=== PATIENT | female | born 1960 | race African-American/Black ===

== ENCOUNTER 2022-10-19 21:26 | Inpatient (IN) | payer MEDICAID ==
[~2022-10-19] VITALS: Ht 170.2 cm; Wt 88.1 kg
[~2022-10-19 21:26] MED LIST: AMLO-489 PO; ASPI-543 PO; ATO40T PO; CLOP75TA28 PO; LOSA-69 PO
[2022-10-19] MEDS ORDERED: IOHEXOL 350 MG/ML 100ML IJ ONE (22:30)
[2022-10-19 23:33] LABS: Basophils # (auto) 0 10 ^3/uL (0-0.2); Lymphocytes # (auto) 0.6 10 ^3/uL (0.4-5.4); Monocytes # (auto) 0.5 10 ^3/uL (0-1.3); Nucleated Red Blood Cells % 0.3 %; Red Blood Cells 2.77 10^6/uL (4.0-5.20)
[2022-10-19 23:39] LABS: Basophils % (auto) 0.5 % (0.0-2.0); Eosinophils # (auto) 0.6 10 ^3/uL (0-0.8); Eosinophils % (auto) 8.8 % (0.0-7.0); Hemoglobin 7.2 g/dL (12.2-16.2); Lymphocytes % (auto) 8.6 % (10.0-50.0); Mean Corpuscular Hemoglobin 26.1 pg (28.0-32.0); Mean Corpuscular Hgb Conc. 31.4 g/dL (32.0-36.0); Mean Corpuscular Volume 83.2 fL (80.0-100.0); Monocytes % (auto) 8.2 % (0.0-12.0); Neutrophils # (auto) 4.9 10 ^3/uL (1.6-8.6); Neutrophils % (auto) 73.9 % (37.0-80.0); Red Cell Distribution Width 18.9 % (11.8-14.3); White Blood Cell 6.7 10^3/uL (4.4-10.8)
[2022-10-19 23:43] LABS: Alanine Aminotransferase 10 U/L (13-56); Albumin 2.5 g/dL (3.4-5.0); Anion Gap 12 (5-15); Aspartate Aminotransferase 15 U/L (15-37); BUN/Creatinine Ratio 5.6; Blood Urea Nitrogen 15 mg/dL (7-18); Calcium 10.5 mg/dL (8.5-10.1); Carbon Dioxide 17 mmol/L (21-32); Chloride 115 mmol/L (98-107); GFR African American 23 mL/min; GFR Non-African American 19 mL/min; Glucose 77 mg/dL (74-106); Potassium 3.9 mmol/L (3.5-5.1); Sodium 144 mmol/L (136-145)
[2022-10-19 23:46] LABS: Alkaline Phosphatase 74 U/L (45-117); Bilirubin, Total 0.3 mg/dL (0.2-1.0); Total Protein 5.9 g/dL (6.4-8.2)
[2022-10-20] MEDS ORDERED: NITROGLYCERIN 0.4 MG SL TAB SL PRN (02:30)
[2022-10-20] MEDS ORDERED: MORPHINE SULFATE INJ 2 MG/ml SYRG IV PRN ×2 (02:30→16:15)
[2022-10-20] MEDS ORDERED: ONDANSETRON HCL 4 MG/2 ML VIAL IV PRN (02:30)
[2022-10-20] MEDS ORDERED: ACETAMINOPHEN 325 MG TAB PO PRN (02:30)
[2022-10-20 03:25] LABS: % Iron Saturation 24.4 % (15-50)
[2022-10-20] MEDS ORDERED: ENOXAPARIN SOD 100 MG/1 ML SYRINGE SC ONE (03:30)
[2022-10-20 08:58] VITALS: BP 111/69
[2022-10-20 09:13] VITALS: BP 107/66
[2022-10-20 09:43] VITALS: BP 121/69
[2022-10-20] MEDS: amLODIPine BESYLATE 5 MG TAB PO SCH (10:00)
[2022-10-20] MEDS ORDERED: LOSARTAN POTASSIUM 50 MG TAB PO SCH (10:00)
[2022-10-20 11:10] VITALS: BP 104/59
[2022-10-20] MEDS: CLOPIDOGREL BISULFATE 75 MG TAB PO SCH (14:17)
[2022-10-20] MEDS: PANTOPRAZOLE 40 MG TAB PO SCH (14:17)
[2022-10-20] MEDS: ASPirin 81 mg TAB PO SCH (14:20)
[2022-10-20] MEDS ORDERED: HYDROcodone-ACET 5/325MG TAB PO PRN (16:15)
[2022-10-20] MEDS: SODIUM BICARBONATE 50ML VIAL 50 ML in SOD CHL 0.45% 1,000 ML IV SCH (17:31)
[2022-10-20] MEDS ORDERED: METO10TA3 PO (19:20)
[2022-10-20] MEDS ORDERED: HYDR25TA87 PO (19:20)
[2022-10-20] MEDS ORDERED: LEVO-28 PO (19:20)
[2022-10-20] MEDS ORDERED: DILT-14 PO (19:20)
[2022-10-20] MEDS: ATORVASTATIN 20 MG TAB PO SCH (23:14)
[2022-10-20 23:25] VITALS: BP 84/54
[2022-10-20 23:49] VITALS: BP 96/60
[2022-10-21] VITALS (12 sets, daily range): BP systolic 72–118; BP diastolic 46–76
[2022-10-21 00:04] LABS: Protein, Urine 130.3 mg/dL (0.0-11.9)
[2022-10-21 00:09] LABS: Urine Bacteria None Seen /hpf (None Seen); Urine Specific Gravity 1.037 (1.001-1.035)
[2022-10-21 00:10] LABS: Urine Blood Normal /uL (Negative)
[2022-10-21 00:12] LABS: Urine WBC 105 /hpf (0 - 5)
[2022-10-21 00:13] LABS: Urine WBC Clumps PRESENT /hpf (None Seen)
[2022-10-21] MEDS: SODIUM BICARBONATE 50ML VIAL 50 ML in SOD CHL 0.45% 1,000 ML IV SCH ×4 (04:18→22:53)
[2022-10-21] MEDS: ACETAMINOPHEN 500 MG TAB PO PRN (04:26)
[2022-10-21 06:26] LABS: Basophils # (auto) 0 10 ^3/uL (0-0.2); Eosinophils # (auto) 0.4 10 ^3/uL (0-0.8); Hematocrit 15.3 % (36.0-46.0); Mean Corpuscular Volume 86.1 fL (80.0-100.0); Monocytes # (auto) 0.7 10 ^3/uL (0-1.3); Monocytes % (auto) 8.5 % (0.0-12.0); Neutrophils # (auto) 6.4 10 ^3/uL (1.6-8.6); Nucleated Red Blood Cells % 0.1 %; Red Blood Cells 1.78 10^6/uL (4.0-5.20)
[2022-10-21 06:29] LABS: Basophils % (auto) 0.5 % (0.0-2.0); Eosinophils % (auto) 5.3 % (0.0-7.0); Lymphocytes # (auto) 0.5 10 ^3/uL (0.4-5.4); Mean Corpuscular Hemoglobin 27.1 pg (28.0-32.0); Mean Corpuscular Hgb Conc. 31.4 g/dL (32.0-36.0); Neutrophils % (auto) 79.7 % (37.0-80.0); Red Cell Distribution Width 18.8 % (11.8-14.3); White Blood Cell 8.1 10^3/uL (4.4-10.8)
[2022-10-21 06:33] LABS: Hemoglobin 4.8 g/dL (12.2-16.2)
[2022-10-21 07:23] LABS: Alanine Aminotransferase < 6 U/L (13-56); Alkaline Phosphatase 66 U/L (45-117); Anion Gap 13 (5-15); Aspartate Aminotransferase 13 U/L (15-37); BUN/Creatinine Ratio 6.8; Bilirubin, Total 0.4 mg/dL (0.2-1.0); Blood Urea Nitrogen 19 mg/dL (7-18); Calcium 10.1 mg/dL (8.5-10.1); Carbon Dioxide 16 mmol/L (21-32); Chloride 116 mmol/L (98-107); GFR African American 22 mL/min; GFR Non-African American 18 mL/min; Glucose 65 mg/dL (74-106); Sodium 145 mmol/L (136-145); Total Protein 5.6 g/dL (6.4-8.2)
[2022-10-21 07:38] LABS: Potassium 2.9 mmol/L (3.5-5.1)
[2022-10-21] MEDS ORDERED: POTASSIUM EFFERVESENT TAB 25 MEQ PO ONE (08:30)
[2022-10-21] MEDS ORDERED: cefTRIAXone 1GM/50ML D5W 50 ML IV SCH (09:00)
[2022-10-21] MEDS: ASPirin 81 mg TAB PO SCH ×2 (10:00→11:10)
[2022-10-21] MEDS: CLOPIDOGREL BISULFATE 75 MG TAB PO SCH ×2 (10:00→11:10)
[2022-10-21] MEDS: amLODIPine BESYLATE 5 MG TAB PO SCH (10:00)
[2022-10-21] MEDS: PANTOPRAZOLE 40 MG TAB PO SCH (10:41)
[2022-10-21] MEDS: PIPERACILLIN-TAZOB 2.25GM 50 ML IV SCH ×2 (13:15→17:41)
[2022-10-21 16:10] LABS: Hematocrit 31.3 % (36.0-46.0); Hemoglobin 10.3 g/dL (12.2-16.2)
[2022-10-21 16:21] LABS: Magnesium 1.5 mg/dL (1.6-2.6); Potassium 3.4 mmol/L (3.5-5.1)
[2022-10-21] MEDS ORDERED: FUROSEMIDE 20 MG/2 ML VIAL IV ONE (19:00)
[2022-10-21] MEDS ORDERED: diphenhdrAMINE HCL 50 MG/1 ML VL IM ONE (19:00)
[2022-10-21] MEDS ORDERED: POTASSIUM CHL 20MEQ/100ML 100 ML IV ONE (19:45)
[2022-10-21] MEDS ORDERED: diphenhdrAMINE HCL 50 MG/1 ML VL IV ONE (19:45)
[2022-10-21] MEDS: MAGNESIUM SULFATE 1GM/100ML 100 ML IV SCH ×2 (20:49→21:00)
[2022-10-21] MEDS: ATORVASTATIN 20 MG TAB PO SCH (22:00)
[2022-10-22] VITALS (8 sets, daily range): BP systolic 70–137; BP diastolic 43–65
[2022-10-22] MEDS: PIPERACILLIN-TAZOB 2.25GM 50 ML IV SCH ×4 (00:12→17:42)
[2022-10-22] MEDS: ACETAMINOPHEN 500 MG TAB PO PRN ×2 (01:20→09:35)
[2022-10-22] MEDS ORDERED: SODIUM CHLORIDE 0.9% 500 ML IV ONE (02:45)
[2022-10-22] MEDS: ALBUMIN 25% 100 ML IV SCH ×3 (04:48→20:43)
[2022-10-22] MEDS: SODIUM BICARBONATE 50ML VIAL 50 ML in SOD CHL 0.45% 1,000 ML IV SCH ×3 (06:45→22:18)
[2022-10-22 07:23] LABS: Basophils # (auto) 0 10 ^3/uL (0-0.2); Basophils % (auto) 0.2 % (0.0-2.0); Eosinophils # (auto) 0.2 10 ^3/uL (0-0.8); Eosinophils % (auto) 2.1 % (0.0-7.0); Hematocrit 28.4 % (36.0-46.0); Hemoglobin 9.3 g/dL (12.2-16.2); Lymphocytes # (auto) 0.1 10 ^3/uL (0.4-5.4); Lymphocytes % (auto) 1.3 % (10.0-50.0); Mean Corpuscular Hemoglobin 27.2 pg (28.0-32.0); Mean Corpuscular Hgb Conc. 32.6 g/dL (32.0-36.0); Mean Corpuscular Volume 83.5 fL (80.0-100.0); Monocytes # (auto) 0.4 10 ^3/uL (0-1.3); Neutrophils # (auto) 8.3 10 ^3/uL (1.6-8.6); Neutrophils % (auto) 92.4 % (37.0-80.0); Nucleated Red Blood Cells % 0.1 %; Red Blood Cells 3.41 10^6/uL (4.0-5.20); Red Cell Distribution Width 18.7 % (11.8-14.3)
[2022-10-22 07:45] LABS: Potassium 3.8 mmol/L (3.5-5.1)
[2022-10-22 07:53] LABS: Albumin 2.4 g/dL (3.4-5.0); BUN/Creatinine Ratio 6.3; Bilirubin, Total 0.7 mg/dL (0.2-1.0); Total Protein 5.1 g/dL (6.4-8.2)
[2022-10-22] MEDS: CLOPIDOGREL BISULFATE 75 MG TAB PO SCH (09:34)
[2022-10-22] MEDS: ASPirin 81 mg TAB PO SCH (09:34)
[2022-10-22] MEDS: PANTOPRAZOLE 40 MG TAB PO SCH (09:35)
[2022-10-22] MEDS: amLODIPine BESYLATE 5 MG TAB PO SCH (09:49)
[2022-10-22] MEDS: MIDODRINE HCL 10 MG TAB PO SCH ×2 (11:41→17:42)
[2022-10-22 16:14] LABS: INR 1.22 (0.9-1.15)
[2022-10-22] MEDS: DOPamine 1600MCG/ML D5W 250 ML IV SCH (16:26)
[2022-10-22] MEDS: ATORVASTATIN 20 MG TAB PO SCH (22:45)
[2022-10-23] MEDS: PIPERACILLIN-TAZOB 2.25GM 50 ML IV SCH ×4 (00:28→21:41)
[2022-10-23 05:00] VITALS: BP 155/62
[2022-10-23] MEDS: ACETAMINOPHEN 500 MG TAB PO PRN (05:47)
[2022-10-23] MEDS: MIDODRINE HCL 10 MG TAB PO SCH ×3 (05:48→18:50)
[2022-10-23] MEDS: SODIUM BICARBONATE 50ML VIAL 50 ML in SOD CHL 0.45% 1,000 ML IV SCH ×2 (06:43→16:54)
[2022-10-23 06:55] LABS: Basophils # (auto) 0 10 ^3/uL (0-0.2); Basophils % (auto) 0.3 % (0.0-2.0); Hemoglobin 9.2 g/dL (12.2-16.2); Lymphocytes # (auto) 0.2 10 ^3/uL (0.4-5.4); Mean Corpuscular Hemoglobin 26.6 pg (28.0-32.0); Monocytes # (auto) 0.3 10 ^3/uL (0-1.3)
[2022-10-23 06:58] LABS: Eosinophils # (auto) 0.4 10 ^3/uL (0-0.8); Eosinophils % (auto) 3.2 % (0.0-7.0); Hematocrit 28.9 % (36.0-46.0); Lymphocytes % (auto) 1.4 % (10.0-50.0); Mean Corpuscular Hgb Conc. 31.8 g/dL (32.0-36.0); Mean Corpuscular Volume 83.5 fL (80.0-100.0); Monocytes % (auto) 2.2 % (0.0-12.0); Neutrophils # (auto) 12.9 10 ^3/uL (1.6-8.6); Neutrophils % (auto) 92.9 % (37.0-80.0); Nucleated Red Blood Cells % 0.1 %; Red Blood Cells 3.46 10^6/uL (4.0-5.20); Red Cell Distribution Width 18.8 % (11.8-14.3); White Blood Cell 13.9 10^3/uL (4.4-10.8)
[2022-10-23 07:13] LABS: Albumin 2.5 g/dL (3.4-5.0); Calcium 8.6 mg/dL (8.5-10.1); Potassium 3.5 mmol/L (3.5-5.1)
[2022-10-23 07:18] LABS: BUN/Creatinine Ratio 5.9; Bilirubin, Total 1.1 mg/dL (0.2-1.0); Total Protein 5.1 g/dL (6.4-8.2)
[2022-10-23 08:00] LABS: INR 1.18 (0.9-1.15); Partial Thromboplastin Time 35.9 sec (24.6-33.4)
[2022-10-23 09:00] VITALS: BP 90/49
[2022-10-23] MEDS: PANTOPRAZOLE 40 MG TAB PO SCH (09:40)
[2022-10-23] MEDS: ASPirin 81 mg TAB PO SCH (09:40)
[2022-10-23] MEDS: CLOPIDOGREL BISULFATE 75 MG TAB PO SCH (09:40)
[2022-10-23] MEDS: amLODIPine BESYLATE 5 MG TAB PO SCH (09:47)
[2022-10-23 13:00] VITALS: BP 93/54
[2022-10-23 13:12] LABS: Lymphocytes # (auto) 0.2 10 ^3/uL (0.4-5.4); Monocytes # (auto) 0.3 10 ^3/uL (0-1.3); Red Cell Distribution Width 18.7 % (11.8-14.3)
[2022-10-23 13:16] LABS: Basophils # (auto) 0 10 ^3/uL (0-0.2); Basophils % (auto) 0.3 % (0.0-2.0); Eosinophils # (auto) 0.3 10 ^3/uL (0-0.8); Eosinophils % (auto) 3.3 % (0.0-7.0); Hematocrit 28.9 % (36.0-46.0); Hemoglobin 9.4 g/dL (12.2-16.2); Lymphocytes % (auto) 1.6 % (10.0-50.0); Mean Corpuscular Hgb Conc. 32.7 g/dL (32.0-36.0); Mean Corpuscular Volume 82.4 fL (80.0-100.0); Monocytes % (auto) 3.1 % (0.0-12.0); Neutrophils # (auto) 9.3 10 ^3/uL (1.6-8.6); Neutrophils % (auto) 91.7 % (37.0-80.0); Nucleated Red Blood Cells % 0.1 %; White Blood Cell 10.1 10^3/uL (4.4-10.8)
[2022-10-23] MEDS: DOPamine 1600MCG/ML D5W 250 ML IV SCH (13:39)
[2022-10-23 17:00] VITALS: BP 100/59
[2022-10-23] MEDS: ATORVASTATIN 20 MG TAB PO SCH (21:41)
[2022-10-23 22:00] VITALS: BP 128/70
[2022-10-24] MEDS: SODIUM BICARBONATE 50ML VIAL 50 ML in SOD CHL 0.45% 1,000 ML IV SCH ×2 (02:49→09:18)
[2022-10-24 05:00] VITALS: BP 111/63
[2022-10-24] MEDS: PIPERACILLIN-TAZOB 2.25GM 50 ML IV SCH ×3 (05:52→22:29)
[2022-10-24] MEDS: MIDODRINE HCL 10 MG TAB PO SCH ×3 (05:52→18:00)
[2022-10-24] MEDS: ACETAMINOPHEN 500 MG TAB PO PRN ×2 (07:41→18:54)
[2022-10-24 08:00] VITALS: BP 140/83
[2022-10-24] MEDS: PANTOPRAZOLE 40 MG TAB PO SCH (10:00)
[2022-10-24] MEDS: ASPirin 81 mg TAB PO SCH (10:00)
[2022-10-24] MEDS: CLOPIDOGREL BISULFATE 75 MG TAB PO SCH (10:00)
[2022-10-24 12:00] VITALS: BP 111/52
[2022-10-24] MEDS: DOPamine 1600MCG/ML D5W 250 ML IV SCH (12:45)
[2022-10-24] MEDS: SODIUM BICARBONATE 50ML VIAL 75 ML in D5W 5% 1,000 ML IV SCH ×2 (12:49→22:29)
[2022-10-24 16:00] VITALS: BP 125/73
[2022-10-24 20:28] LABS: Potassium 3.1 mmol/L (3.5-5.1)
[2022-10-24 20:29] LABS: BUN/Creatinine Ratio 6.5; Calcium 8.3 mg/dL (8.5-10.1)
[2022-10-24] MEDS ORDERED: POTASSIUM CHL 20 Meq TABLET PO ONE (21:15)
[2022-10-24 22:00] VITALS: BP 118/72
[2022-10-24] MEDS: ATORVASTATIN 20 MG TAB PO SCH (22:29)
[2022-10-24 22:34] LABS: Basophils # (auto) 0 10 ^3/uL (0-0.2); Eosinophils # (auto) 0.9 10 ^3/uL (0-0.8); Lymphocytes # (auto) 0.1 10 ^3/uL (0.4-5.4); Lymphocytes % (auto) 1.9 % (10.0-50.0); Mean Corpuscular Volume 82.5 fL (80.0-100.0)
[2022-10-24 22:36] LABS: Basophils % (auto) 0.3 % (0.0-2.0); Eosinophils % (auto) 11.3 % (0.0-7.0); Hemoglobin 8.8 g/dL (12.2-16.2); Mean Corpuscular Hgb Conc. 32.7 g/dL (32.0-36.0); Monocytes # (auto) 0.3 10 ^3/uL (0-1.3); Monocytes % (auto) 4.2 % (0.0-12.0); Neutrophils # (auto) 6.4 10 ^3/uL (1.6-8.6); Neutrophils % (auto) 82.3 % (37.0-80.0); Red Blood Cells 3.28 10^6/uL (4.0-5.20); Red Cell Distribution Width 18.9 % (11.8-14.3); White Blood Cell 7.8 10^3/uL (4.4-10.8)
[2022-10-24 22:49] LABS: BUN/Creatinine Ratio 6.8; Calcium 7.9 mg/dL (8.5-10.1)
[2022-10-24 23:26] LABS: Potassium 2.9 mmol/L (3.5-5.1)
[2022-10-25 02:56] LABS: Urine Bacteria FEW /hpf (None Seen); Urine Blood 1+ /uL (Negative); Urine Hyaline Cast FEW /lpf (0 - 2); Urine Mucus FEW (None Seen); Urine Specific Gravity 1.008 (1.001-1.035); Urine WBC 495 /hpf (0 - 5); Urine WBC Clumps PRESENT /hpf (None Seen)
[2022-10-25] MEDS: SODIUM BICARBONATE 50ML VIAL 75 ML in D5W 5% 1,000 ML IV SCH ×2 (03:57→11:31)
[2022-10-25 05:00] VITALS: BP 142/81
[2022-10-25] MEDS: PIPERACILLIN-TAZOB 2.25GM 50 ML IV SCH ×3 (05:21→22:45)
[2022-10-25] MEDS: MIDODRINE HCL 10 MG TAB PO SCH ×3 (06:00→18:25)
[2022-10-25] MEDS: ACETAMINOPHEN 500 MG TAB PO PRN ×2 (07:16→17:15)
[2022-10-25] MEDS: PANTOPRAZOLE 40 MG TAB PO SCH (08:36)
[2022-10-25] MEDS: CLOPIDOGREL BISULFATE 75 MG TAB PO SCH (08:37)
[2022-10-25 09:00] VITALS: BP 134/71
[2022-10-25 10:45] LABS: Basophils # (auto) 0 10 ^3/uL (0-0.2); Hemoglobin 9.3 g/dL (12.2-16.2); Lymphocytes # (auto) 0.2 10 ^3/uL (0.4-5.4)
[2022-10-25 10:46] LABS: Basophils % (auto) 0.5 % (0.0-2.0); Eosinophils # (auto) 0.9 10 ^3/uL (0-0.8); Eosinophils % (auto) 12.3 % (0.0-7.0); Hematocrit 28.6 % (36.0-46.0); Lymphocytes % (auto) 2.6 % (10.0-50.0); Mean Corpuscular Hemoglobin 26.6 pg (28.0-32.0); Mean Corpuscular Hgb Conc. 32.6 g/dL (32.0-36.0); Mean Corpuscular Volume 81.7 fL (80.0-100.0); Monocytes # (auto) 0.4 10 ^3/uL (0-1.3); Monocytes % (auto) 5.2 % (0.0-12.0); Neutrophils # (auto) 5.6 10 ^3/uL (1.6-8.6); Neutrophils % (auto) 79.4 % (37.0-80.0); Red Cell Distribution Width 18.6 % (11.8-14.3)
[2022-10-25 11:17] LABS: BUN/Creatinine Ratio 6.8
[2022-10-25 11:30] LABS: Potassium 2.9 mmol/L (3.5-5.1)
[2022-10-25] MEDS ORDERED: POTASSIUM CHLORIDE 40 MEQ, LIDOCAINE 1% (LOCAL ANESTH.) 4 ML in SODIUM CHL 0.9% 250 ML IV ONE (11:45)
[2022-10-25] MEDS: DOPamine 1600MCG/ML D5W 250 ML IV SCH (12:45)
[2022-10-25 12:57] VITALS: BP 141/75
[2022-10-25 16:56] VITALS: BP 153/69
[2022-10-25] MEDS ORDERED: MIDAZOLAM HCL 5 MG/ML-1ML VIAL ONE (16:58)
[2022-10-25] MEDS ORDERED: diphenhdrAMINE HCL 50 MG/1 ML VL ONE (16:58)
[2022-10-25] MEDS ORDERED: LIDOCAINE VISCOUS 2% 15ML UD ONE (16:58)
[2022-10-25] MEDS ORDERED: SODIUM CHLORIDE LOCK 10 ML ONE (16:58)
[2022-10-25] MEDS ORDERED: fentaNYL CITRATE 100 MCG/2 ML VL ONE (16:59)
[2022-10-25] MEDS: SODIUM CHLORIDE 0.9% 1,000 ML IV SCH (18:24)
[2022-10-25 22:00] VITALS: BP 120/65
[2022-10-25] MEDS: ATORVASTATIN 20 MG TAB PO SCH (22:00)
[2022-10-26] MEDS: SODIUM CHLORIDE 0.9% 1,000 ML IV SCH (04:11)
[2022-10-26 05:00] VITALS: BP 135/82
[2022-10-26] MEDS: MIDODRINE HCL 10 MG TAB PO SCH ×3 (05:55→18:18)
[2022-10-26] MEDS: PIPERACILLIN-TAZOB 2.25GM 50 ML IV SCH ×4 (05:57→21:31)
[2022-10-26 06:31] LABS: Potassium 3.5 mmol/L (3.5-5.1)
[2022-10-26] MEDS ORDERED: ONDANSETRON HCL 4 MG/2 ML VIAL IV PRN (08:30)
[2022-10-26] MEDS ORDERED: HYDROcodone-ACET 5/325MG TAB PO PRN (08:30)
[2022-10-26 09:09] VITALS: BP 128/74
[2022-10-26] MEDS: D5W/SOD CHLO 0.9% 1,000 ML IV SCH ×2 (09:11→18:20)
[2022-10-26] MEDS: PANTOPRAZOLE 40 MG TAB PO SCH (09:12)
[2022-10-26] MEDS: ENOXAPARIN SOD 30 MG/0.3 ML SYRINGE SC SCH (09:12)
[2022-10-26] MEDS: CLOPIDOGREL BISULFATE 75 MG TAB PO SCH (09:12)
[2022-10-26 11:11] VITALS: BP 128/74
[2022-10-26] MEDS ORDERED: FUROSEMIDE 100 MG/10ML VIAL IV ONE ×2 (11:15→13:30)
[2022-10-26] MEDS ORDERED: SODIUM BICARBONATE 8.4 % INJ 50ML VIAL IV ONE ×2 (11:15→13:30)
[2022-10-26 13:17] VITALS: BP 124/82
[2022-10-26] MEDS: DOPamine 1600MCG/ML D5W 250 ML IV SCH (14:32)
[2022-10-26 16:38] VITALS: BP 98/55
[2022-10-26] MEDS: ATORVASTATIN 20 MG TAB PO SCH (21:32)
[2022-10-26 22:00] VITALS: BP 138/76
[2022-10-27 05:00] VITALS: BP 131/75
[2022-10-27] MEDS: D5W/SOD CHLO 0.9% 1,000 ML IV SCH (05:17)
[2022-10-27 05:27] LABS: Basophils # (auto) 0 10 ^3/uL (0-0.2); Basophils % (auto) 0.4 % (0.0-2.0); Eosinophils # (auto) 1.2 10 ^3/uL (0-0.8); Eosinophils % (auto) 13.9 % (0.0-7.0); Hematocrit 30.3 % (36.0-46.0); Hemoglobin 10.2 g/dL (12.2-16.2); Lymphocytes # (auto) 0.4 10 ^3/uL (0.4-5.4); Lymphocytes % (auto) 4.3 % (10.0-50.0); Mean Corpuscular Hemoglobin 26.9 pg (28.0-32.0); Mean Corpuscular Hgb Conc. 33.5 g/dL (32.0-36.0); Mean Corpuscular Volume 80.3 fL (80.0-100.0); Monocytes # (auto) 0.4 10 ^3/uL (0-1.3); Neutrophils # (auto) 6.4 10 ^3/uL (1.6-8.6); Neutrophils % (auto) 76.4 % (37.0-80.0); Nucleated Red Blood Cells % 0.1 %; Red Blood Cells 3.78 10^6/uL (4.0-5.20); White Blood Cell 8.4 10^3/uL (4.4-10.8)
[2022-10-27 05:36] LABS: BUN/Creatinine Ratio 7.8; Calcium 7.9 mg/dL (8.5-10.1); Potassium 3.2 mmol/L (3.5-5.1)
[2022-10-27] MEDS: MIDODRINE HCL 10 MG TAB PO SCH ×3 (05:41→18:16)
[2022-10-27] MEDS: PIPERACILLIN-TAZOB 2.25GM 50 ML IV SCH (05:41)
[2022-10-27 08:00] VITALS: BP 123/75
[2022-10-27] MEDS: PANTOPRAZOLE 40 MG TAB PO SCH (09:57)
[2022-10-27] MEDS: CLOPIDOGREL BISULFATE 75 MG TAB PO SCH (09:57)
[2022-10-27] MEDS: ENOXAPARIN SOD 30 MG/0.3 ML SYRINGE SC SCH (09:57)
[2022-10-27 12:00] VITALS: BP 122/97
[2022-10-27] MEDS: cefTRIAXone 1GM/50ML D5W 50 ML IV SCH (12:00)
[2022-10-27] MEDS: metroNIDAZOLE 500MG/100ML 100 ML IV SCH ×2 (14:00→22:56)
[2022-10-27] MEDS: MORPHINE SULFATE INJ 2 MG/ml SYRG ONE (14:56)
[2022-10-27] MEDS ORDERED: MORPHINE SULFATE INJ 2 MG/ml SYRG IM ONE (15:00)
[2022-10-27] MEDS ORDERED: HEPARIN SODIUM (PORCINE) 5000 UNITS/ML 1ML VIAL ONE (15:21)
[2022-10-27 16:00] VITALS: BP 104/66
[2022-10-27] MEDS ORDERED: HEPARIN 1,000 UNITS/ml 1ML VIAL IV ONE (16:15)
[2022-10-27 22:00] VITALS: BP 107/71
[2022-10-27] MEDS: ATORVASTATIN 20 MG TAB PO SCH (22:56)
[2022-10-28 05:00] VITALS: BP 109/67
[2022-10-28 06:06] LABS: BUN/Creatinine Ratio 8.4; Calcium 7.6 mg/dL (8.5-10.1)
[2022-10-28] MEDS: MIDODRINE HCL 10 MG TAB PO SCH ×4 (06:24→19:38)
[2022-10-28] MEDS: metroNIDAZOLE 500MG/100ML 100 ML IV SCH ×3 (06:24→23:58)
[2022-10-28 06:31] LABS: Potassium 2.9 mmol/L (3.5-5.1)
[2022-10-28] MEDS ORDERED: SODIUM CHL 0.9% 1000 ML BAG XX ONE (07:00)
[2022-10-28] MEDS ORDERED: POTASSIUM CHL 20 Meq TABLET PO ONE (07:00)
[2022-10-28] MEDS: ALBUTEROL SULF 2.5 MG/0.5ML(0.5%) NEB SOLN NEB PRN (08:04)
[2022-10-28] MEDS: IPRATROPIUM BROM 0.5 MG/2.5ML INH SOL NEB PRN (08:04)
[2022-10-28] MEDS: FERROUS SULFATE 325mg EC TAB PO SCH ×2 (09:58→18:00)
[2022-10-28] MEDS: cefTRIAXone 1GM/50ML D5W 50 ML IV SCH (09:59)
[2022-10-28] MEDS: PANTOPRAZOLE 40 MG TAB PO SCH (10:00)
[2022-10-28] MEDS: CLOPIDOGREL BISULFATE 75 MG TAB PO SCH (10:00)
[2022-10-28] MEDS: FUROSEMIDE 40 MG/4 ML VIAL IV SCH (10:00)
[2022-10-28] MEDS: ENOXAPARIN SOD 30 MG/0.3 ML SYRINGE SC SCH (10:01)
[2022-10-28] MEDS ORDERED: DEXTROSE 10% 1,000 ML IV ONE (10:30)
[2022-10-28] MEDS: D5W/SOD CHLO 0.9% 1,000 ML IV SCH (11:33)
[2022-10-28] MEDS: Ensure Enlive Strawberry 8oz Bottle PO SCH ×2 (12:00→18:00)
[2022-10-28 12:01] LABS: Hepatitis A Ab IgM Negative; Hepatitis B Core IgM Negative
[2022-10-28 12:03] LABS: Hepatitis C Antibody Negative (Negative)
[2022-10-28 13:00] VITALS: BP 99/60
[2022-10-28] MEDS: MORPHINE SULFATE INJ 2 MG/ml SYRG IV PRN (15:16)
[2022-10-28 17:00] VITALS: BP 100/60
[2022-10-28 23:30] VITALS: BP 131/78
[2022-10-28] MEDS: ATORVASTATIN 20 MG TAB PO SCH (23:58)
[2022-10-29 04:55] VITALS: BP 136/73
[2022-10-29] MEDS: metroNIDAZOLE 500MG/100ML 100 ML IV SCH ×3 (05:54→21:51)
[2022-10-29 06:25] LABS: BUN/Creatinine Ratio 8.7; Calcium 7.5 mg/dL (8.5-10.1)
[2022-10-29 06:35] LABS: Potassium 2.8 mmol/L (3.5-5.1)
[2022-10-29] MEDS ORDERED: POTASSIUM CHL 20 Meq TABLET PO ONE (06:45)
[2022-10-29] MEDS: D5W/SOD CHLO 0.9% 1,000 ML IV SCH (07:15)
[2022-10-29] MEDS: Ensure Enlive Strawberry 8oz Bottle PO SCH ×3 (08:00→18:18)
[2022-10-29] MEDS: FERROUS SULFATE 325mg EC TAB PO SCH ×2 (08:00→18:00)
[2022-10-29 09:00] VITALS: BP 132/60
[2022-10-29 10:00] VITALS: BP 99/51
[2022-10-29] MEDS: PANTOPRAZOLE 40 MG TAB PO SCH (10:00)
[2022-10-29] MEDS: CLOPIDOGREL BISULFATE 75 MG TAB PO SCH (10:00)
[2022-10-29] MEDS: FUROSEMIDE 40 MG/4 ML VIAL IV SCH (10:00)
[2022-10-29] MEDS: MIDODRINE HCL 10 MG TAB PO SCH ×2 (12:00→18:00)
[2022-10-29 13:00] VITALS: BP 109/69
[2022-10-29] MEDS: cefTRIAXone 1GM/50ML D5W 50 ML IV SCH (15:02)
[2022-10-29] MEDS: ENOXAPARIN SOD 30 MG/0.3 ML SYRINGE SC SCH (15:05)
[2022-10-29] MEDS: ACCU-CHEK COMFORT CURVE STRIP VI SCH ×2 (15:06→18:17)
[2022-10-29 17:00] VITALS: BP 122/78
[2022-10-29] MEDS: MORPHINE SULFATE INJ 2 MG/ml SYRG IV PRN (18:19)
[2022-10-29] MEDS: ATORVASTATIN 20 MG TAB PO SCH (21:51)
[2022-10-29 22:00] VITALS: BP 115/86
[2022-10-30] MEDS: ACETAMINOPHEN 500 MG TAB PO PRN (01:12)
[2022-10-30] MEDS: D5W/SOD CHLO 0.9% 1,000 ML IV SCH (03:15)
[2022-10-30 05:00] VITALS: BP 120/70
[2022-10-30] MEDS: metroNIDAZOLE 500MG/100ML 100 ML IV SCH ×3 (05:58→22:01)
[2022-10-30] MEDS: MIDODRINE HCL 10 MG TAB PO SCH ×3 (05:58→17:35)
[2022-10-30] MEDS: ACCU-CHEK COMFORT CURVE STRIP VI SCH ×4 (06:22→23:51)
[2022-10-30 06:38] LABS: BUN/Creatinine Ratio 8.3; Calcium 7.6 mg/dL (8.5-10.1)
[2022-10-30 06:45] LABS: Potassium 2.7 mmol/L (3.5-5.1)
[2022-10-30] MEDS: Ensure Enlive Strawberry 8oz Bottle PO SCH ×3 (08:00→17:35)
[2022-10-30] MEDS: FERROUS SULFATE 325mg EC TAB PO SCH ×2 (08:00→17:35)
[2022-10-30 08:45] VITALS: BP 116/71
[2022-10-30] MEDS: POTASSIUM CHL 20MEQ/100ML 100 ML IV SCH ×2 (09:28→15:01)
[2022-10-30] MEDS: cefTRIAXone 1GM/50ML D5W 50 ML IV SCH (09:29)
[2022-10-30] MEDS: DEXTROSE 10% 1,000 ML IV SCH ×2 (09:29→15:02)
[2022-10-30] MEDS: PANTOPRAZOLE 40 MG TAB PO SCH (09:30)
[2022-10-30] MEDS: FUROSEMIDE 40 MG/4 ML VIAL IV SCH (09:30)
[2022-10-30] MEDS: CLOPIDOGREL BISULFATE 75 MG TAB PO SCH (09:30)
[2022-10-30] MEDS: ENOXAPARIN SOD 30 MG/0.3 ML SYRINGE SC SCH (09:31)
[2022-10-30] MEDS ORDERED: TPN PER PHARMACY 0 ML IV SCH (11:30)
[2022-10-30] MEDS ORDERED: SODIUM CHL 0.9% 1000 ML BAG XX ONE (12:00)
[2022-10-30 12:16] LABS: Hematocrit 25.6 % (36.0-46.0); Hemoglobin 8.3 g/dL (12.2-16.2)
[2022-10-30 12:25] LABS: Albumin 1.8 g/dL (3.4-5.0)
[2022-10-30 12:29] LABS: Bilirubin, Direct 0.2 mg/dL (0-0.2); Bilirubin, Total 0.5 mg/dL (0.2-1.0); Magnesium 1.6 mg/dL (1.6-2.6); Phosphorus 4.7 mg/dL (2.5-4.90); Total Protein 4.7 g/dL (6.4-8.2)
[2022-10-30 13:00] VITALS: BP_SYST 105; BP_SYST 96; BP_DIAS 62; BP_DIAS 67
[2022-10-30] MEDS ORDERED: ALBUMIN 25% 100 ML IV SCH (13:00)
[2022-10-30] MEDS: ALBUMIN 25% 100 ML IV SCH ×2 (14:00→15:00)
[2022-10-30] MEDS: MAGNESIUM SULFATE 1GM/100ML 100 ML IV SCH ×2 (15:05→19:04)
[2022-10-30 17:00] VITALS: BP 107/71
[2022-10-30] MEDS: InsuLIN REG 1unit/0.01ml Soln (100units/ml) SC SCH ×2 (17:34→23:51)
[2022-10-30] MEDS ORDERED: DEXTROSE (50%) 50ML SYRG IV SCH (18:00)
[2022-10-30] MEDS ORDERED: TPN PER PHARMACY IV NR ×7 (20:00)
[2022-10-30] MEDS ORDERED: EPOETIN ALFA-EPBX 10,000 UNIT/1ML VIAL SC ONE (21:00)
[2022-10-30 22:00] VITALS: BP 114/63
[2022-10-30] MEDS: ATORVASTATIN 20 MG TAB PO SCH (22:00)
[2022-10-30] MEDS: IPRATROPIUM BROM 0.5 MG/2.5ML INH SOL NEB PRN (22:10)
[2022-10-30] MEDS: ALBUTEROL SULF 2.5 MG/0.5ML(0.5%) NEB SOLN NEB PRN (22:10)
[2022-10-31 05:00] VITALS: BP 109/71
[2022-10-31] MEDS: metroNIDAZOLE 500MG/100ML 100 ML IV SCH ×3 (05:50→22:17)
[2022-10-31] MEDS: ACCU-CHEK COMFORT CURVE STRIP VI SCH ×4 (05:50→23:28)
[2022-10-31] MEDS: MIDODRINE HCL 10 MG TAB PO SCH ×3 (06:00→17:39)
[2022-10-31] MEDS: InsuLIN REG 1unit/0.01ml Soln (100units/ml) SC SCH ×4 (06:05→23:31)
[2022-10-31] MEDS: DEXTROSE 10% 1,000 ML IV SCH (06:06)
[2022-10-31 06:42] LABS: Basophils # (auto) 0 10 ^3/uL (0-0.2); Basophils % (auto) 0.3 % (0.0-2.0); Eosinophils # (auto) 0.4 10 ^3/uL (0-0.8); Lymphocytes # (auto) 0.4 10 ^3/uL (0.4-5.4); Neutrophils # (auto) 3.3 10 ^3/uL (1.6-8.6)
[2022-10-31 06:45] LABS: Eosinophils % (auto) 9.8 % (0.0-7.0); Hematocrit 22.6 % (36.0-46.0); Hemoglobin 7.4 g/dL (12.2-16.2); Lymphocytes % (auto) 8.7 % (10.0-50.0); Mean Corpuscular Hemoglobin 26.5 pg (28.0-32.0); Mean Corpuscular Hgb Conc. 32.8 g/dL (32.0-36.0); Mean Corpuscular Volume 80.8 fL (80.0-100.0); Monocytes # (auto) 0.4 10 ^3/uL (0-1.3); Monocytes % (auto) 8.7 % (0.0-12.0); Neutrophils % (auto) 72.5 % (37.0-80.0); Nucleated Red Blood Cells % 0.2 %; Red Cell Distribution Width 18.6 % (11.8-14.3); White Blood Cell 4.5 10^3/uL (4.4-10.8)
[2022-10-31 07:22] LABS: Albumin 2.3 g/dL (3.4-5.0); BUN/Creatinine Ratio 8.5; Bilirubin, Total 0.4 mg/dL (0.2-1.0); Magnesium 2.2 mg/dL (1.6-2.6); Phosphorus 1.6 mg/dL (2.5-4.90); Total Protein 5.4 g/dL (6.4-8.2)
[2022-10-31] MEDS: FERROUS SULFATE 325mg EC TAB PO SCH ×2 (08:00→17:39)
[2022-10-31] MEDS ORDERED: POTASSIUM PHOSPHATE 44 MEQ in D5W 5% 250 ML IV ONE (08:00)
[2022-10-31] MEDS: Ensure Enlive Strawberry 8oz Bottle PO SCH ×3 (08:00→17:39)
[2022-10-31 08:55] VITALS: BP 113/165
[2022-10-31] MEDS: CLOPIDOGREL BISULFATE 75 MG TAB PO SCH (10:00)
[2022-10-31] MEDS: PANTOPRAZOLE 40 MG TAB PO SCH (10:00)
[2022-10-31] MEDS: cefTRIAXone 1GM/50ML D5W 50 ML IV SCH (10:41)
[2022-10-31] MEDS: FUROSEMIDE 40 MG/4 ML VIAL IV SCH (10:41)
[2022-10-31] MEDS: ENOXAPARIN SOD 30 MG/0.3 ML SYRINGE SC SCH (10:42)
[2022-10-31 13:00] VITALS: BP 102/54
[2022-10-31] MEDS: MORPHINE SULFATE INJ 2 MG/ml SYRG IV PRN (15:28)
[2022-10-31] MEDS: ACETAMINOPHEN 650 MG RECT SUPP PR PRN (15:28)
[2022-10-31] MEDS: POTASSIUM CHL 20MEQ/100ML 100 ML IV SCH ×3 (15:30→20:06)
[2022-10-31 17:00] VITALS: BP_SYST 101; BP_SYST 125; BP_DIAS 54
[2022-10-31] MEDS ORDERED: TPN PER PHARMACY IV NR ×8 (20:00)
[2022-10-31 22:00] VITALS: BP 125/70
[2022-10-31] MEDS: ATORVASTATIN 20 MG TAB PO SCH (22:00)
[2022-11-01] VITALS (7 sets, daily range): BP systolic 90–127; BP diastolic 55–71
[2022-11-01] MEDS: MIDODRINE HCL 10 MG TAB PO SCH ×3 (05:57→18:31)
[2022-11-01] MEDS: metroNIDAZOLE 500MG/100ML 100 ML IV SCH ×3 (05:57→21:33)
[2022-11-01] MEDS: ACCU-CHEK COMFORT CURVE STRIP VI SCH ×3 (06:10→18:32)
[2022-11-01 06:27] LABS: Hemoglobin 7.4 g/dL (12.2-16.2); Mean Corpuscular Hgb Conc. 33.8 g/dL (32.0-36.0)
[2022-11-01 06:29] LABS: Mean Corpuscular Hemoglobin 26.9 pg (28.0-32.0); Mean Corpuscular Volume 79.7 fL (80.0-100.0); Red Blood Cells 2.76 10^6/uL (4.0-5.20); Red Cell Distribution Width 18.8 % (11.8-14.3)
[2022-11-01 06:31] LABS: Albumin 2.3 g/dL (3.4-5.0); BUN/Creatinine Ratio 10.2; Magnesium 1.9 mg/dL (1.6-2.6)
[2022-11-01 06:34] LABS: Bilirubin, Total 0.5 mg/dL (0.2-1.0); Phosphorus 1.2 mg/dL (2.5-4.90); Total Protein 4.7 g/dL (6.4-8.2)
[2022-11-01] MEDS: InsuLIN REG 1unit/0.01ml Soln (100units/ml) SC SCH ×3 (06:36→18:47)
[2022-11-01 07:10] LABS: Potassium 2.7 mmol/L (3.5-5.1)
[2022-11-01] MEDS: cefTRIAXone 1GM/50ML D5W 50 ML IV SCH (08:36)
[2022-11-01] MEDS: FERROUS SULFATE 325mg EC TAB PO SCH ×2 (08:38→18:31)
[2022-11-01] MEDS: Ensure Enlive Strawberry 8oz Bottle PO SCH ×3 (08:38→18:31)
[2022-11-01 09:02] LABS: Basophils % (manual) 0 (0.0-2.0); Blast Cells 0; Metamyelocytes % 0; Myelocytes % 0; Promyelocytes % 0; Reactive Lymphocytes 0
[2022-11-01] MEDS: FUROSEMIDE 40 MG/4 ML VIAL IV SCH (09:55)
[2022-11-01] MEDS: ENOXAPARIN SOD 30 MG/0.3 ML SYRINGE SC SCH (09:56)
[2022-11-01] MEDS: PANTOPRAZOLE 40 MG TAB PO SCH (09:57)
[2022-11-01] MEDS: CLOPIDOGREL BISULFATE 75 MG TAB PO SCH (09:57)
[2022-11-01] MEDS ORDERED: POTASSIUM PHOSPHATE 44 MEQ in D5W 5% 250 ML IV ONE (11:00)
[2022-11-01 13:25] LABS: Band Neutrophils % (manual) 38; Eosinophils % (manual) 15 (0-7); Lymphocytes % (manual) 8 (10.0-50.0); Monocytes % (manual) 6 (0-12)
[2022-11-01] MEDS ORDERED: TPN PER PHARMACY IV NR ×9 (20:00)
[2022-11-01] MEDS: ATORVASTATIN 20 MG TAB PO SCH (21:04)
[2022-11-01] MEDS: ACETAMINOPHEN 650 MG RECT SUPP PR PRN (21:31)
[2022-11-02] VITALS (7 sets, daily range): BP systolic 129–149; BP diastolic 73–89
[2022-11-02] MEDS: ACCU-CHEK COMFORT CURVE STRIP VI SCH ×4 (00:31→17:45)
[2022-11-02] MEDS: InsuLIN REG 1unit/0.01ml Soln (100units/ml) SC SCH ×4 (00:35→18:32)
[2022-11-02] MEDS: MIDODRINE HCL 10 MG TAB PO SCH ×2 (05:36→11:16)
[2022-11-02] MEDS: metroNIDAZOLE 500MG/100ML 100 ML IV SCH (05:43)
[2022-11-02 06:28] LABS: Albumin 2.2 g/dL (3.4-5.0); Calcium 8.3 mg/dL (8.5-10.1); Magnesium 2.1 mg/dL (1.6-2.6)
[2022-11-02 06:45] LABS: BUN/Creatinine Ratio 11.8; Bilirubin, Total 0.3 mg/dL (0.2-1.0); Phosphorus 4.3 mg/dL (2.5-4.90); Total Protein 5.3 g/dL (6.4-8.2)
[2022-11-02] MEDS: FERROUS SULFATE 325mg EC TAB PO SCH (08:00)
[2022-11-02] MEDS: Ensure Enlive Strawberry 8oz Bottle PO SCH ×2 (08:00→11:16)
[2022-11-02] MEDS: cefTRIAXone 1GM/50ML D5W 50 ML IV SCH (08:11)
[2022-11-02] MEDS: CLOPIDOGREL BISULFATE 75 MG TAB PO SCH (09:34)
[2022-11-02] MEDS: ENOXAPARIN SOD 30 MG/0.3 ML SYRINGE SC SCH (09:34)
[2022-11-02] MEDS: FUROSEMIDE 40 MG/4 ML VIAL IV SCH (09:34)
[2022-11-02] MEDS: PANTOPRAZOLE 40 MG TAB PO SCH (09:34)
[2022-11-02] MEDS ORDERED: LORazepam 2MG/ML-1ML VIAL IV PRN (09:45)
[2022-11-02] MEDS ORDERED: POTASSIUM CHL 20MEQ/100ML 100 ML IV ONE (11:00)
[2022-11-02] MEDS ORDERED: TPN PER PHARMACY IV NR ×10 (20:00)
[2022-11-02] MEDS: ATORVASTATIN 20 MG TAB PO SCH (21:42)
[2022-11-03] VITALS (7 sets, daily range): BP systolic 105–133; BP diastolic 62–82
[2022-11-03] MEDS: ACCU-CHEK COMFORT CURVE STRIP VI SCH ×5 (06:03→23:43)
[2022-11-03] MEDS: InsuLIN REG 1unit/0.01ml Soln (100units/ml) SC SCH ×4 (06:07→18:14)
[2022-11-03 07:43] LABS: Albumin 2.3 g/dL (3.4-5.0); BUN/Creatinine Ratio 13.4; Calcium 8.6 mg/dL (8.5-10.1); Magnesium 2.2 mg/dL (1.6-2.6); Potassium 3.3 mmol/L (3.5-5.1)
[2022-11-03 07:46] LABS: Bilirubin, Total 0.4 mg/dL (0.2-1.0); Phosphorus 3.7 mg/dL (2.5-4.90); Total Protein 5.6 g/dL (6.4-8.2)
[2022-11-03] MEDS: cefTRIAXone 1GM/50ML D5W 50 ML IV SCH (09:09)
[2022-11-03] MEDS: ENOXAPARIN SOD 30 MG/0.3 ML SYRINGE SC SCH (09:09)
[2022-11-03] MEDS: FUROSEMIDE 40 MG/4 ML VIAL IV SCH (09:12)
[2022-11-03] MEDS: POTASSIUM CHL 20MEQ/100ML 100 ML IV SCH ×2 (12:35→16:20)
[2022-11-03] MEDS ORDERED: TPN PER PHARMACY IV NR ×9 (20:00)
[2022-11-03] MEDS: ATORVASTATIN 20 MG TAB PO SCH (22:00)
[2022-11-04] MEDS: InsuLIN REG 1unit/0.01ml Soln (100units/ml) SC SCH ×5 (00:09→22:32)
[2022-11-04] MEDS: MORPHINE SULFATE INJ 2 MG/ml SYRG IV PRN (00:11)
[2022-11-04 05:00] VITALS: BP 106/18
[2022-11-04] MEDS: ACCU-CHEK COMFORT CURVE STRIP VI SCH ×4 (05:52→22:32)
[2022-11-04 06:32] LABS: Potassium 4.2 mmol/L (3.5-5.1)
[2022-11-04 06:37] LABS: Albumin 2.5 g/dL (3.4-5.0); Calcium 9.1 mg/dL (8.5-10.1); Magnesium 2.1 mg/dL (1.6-2.6)
[2022-11-04 06:45] LABS: Bilirubin, Total 0.4 mg/dL (0.2-1.0); Phosphorus 3.2 mg/dL (2.5-4.90)
[2022-11-04 08:00] VITALS: BP 118/77
[2022-11-04 09:24] VITALS: BP 94/56
[2022-11-04] MEDS: cefTRIAXone 1GM/50ML D5W 50 ML IV SCH (10:28)
[2022-11-04] MEDS: ENOXAPARIN SOD 30 MG/0.3 ML SYRINGE SC SCH (10:28)
[2022-11-04 13:00] VITALS: BP 93/62
[2022-11-04 17:30] VITALS: BP 103/62
[2022-11-04] MEDS ORDERED: TPN PER PHARMACY IV NR ×8 (20:00)
[2022-11-04 22:00] VITALS: BP 96/63
[2022-11-04] MEDS: ATORVASTATIN 20 MG TAB PO SCH (22:00)
[2022-11-05] VITALS (27 sets, daily range): BP systolic 75–216; BP diastolic 27–167
[2022-11-05] MEDS: MORPHINE SULFATE INJ 2 MG/ml SYRG IV PRN ×4 (03:54→17:08)
[2022-11-05] MEDS: ACCU-CHEK COMFORT CURVE STRIP VI SCH ×3 (05:35→18:00)
[2022-11-05] MEDS: InsuLIN REG 1unit/0.01ml Soln (100units/ml) SC SCH ×3 (05:44→18:00)
[2022-11-05 06:08] LABS: Basophils # (auto) 0 10 ^3/uL (0-0.2); Eosinophils # (auto) 0.1 10 ^3/uL (0-0.8); Lymphocytes # (auto) 0.8 10 ^3/uL (0.4-5.4); Monocytes # (auto) 0.9 10 ^3/uL (0-1.3); Nucleated Red Blood Cells % 0.9 %
[2022-11-05 06:11] LABS: Basophils % (auto) 0.1 % (0.0-2.0); Eosinophils % (auto) 0.7 % (0.0-7.0); Hematocrit 25.6 % (36.0-46.0); Lymphocytes % (auto) 6.8 % (10.0-50.0); Mean Corpuscular Hemoglobin 26.4 pg (28.0-32.0); Mean Corpuscular Hgb Conc. 31.2 g/dL (32.0-36.0); Mean Corpuscular Volume 84.5 fL (80.0-100.0); Monocytes % (auto) 8.5 % (0.0-12.0); Neutrophils # (auto) 9.4 10 ^3/uL (1.6-8.6); Neutrophils % (auto) 83.9 % (37.0-80.0); Red Blood Cells 3.02 10^6/uL (4.0-5.20); White Blood Cell 11.2 10^3/uL (4.4-10.8)
[2022-11-05 06:20] LABS: INR 1.03 (0.9-1.15); Partial Thromboplastin Time 29.3 sec (24.6-33.4)
[2022-11-05 06:25] LABS: Albumin 2.6 g/dL (3.4-5.0); Calcium 9.2 mg/dL (8.5-10.1); Magnesium 2.3 mg/dL (1.6-2.6); Potassium 4.6 mmol/L (3.5-5.1)
[2022-11-05 06:29] LABS: BUN/Creatinine Ratio 18.8; Bilirubin, Total 0.4 mg/dL (0.2-1.0); Phosphorus 5.4 mg/dL (2.5-4.90); Total Protein 6.4 g/dL (6.4-8.2)
[2022-11-05] MEDS ORDERED: SODIUM CHLORIDE 0.9% 500 ML IV ONE (07:45)
[2022-11-05] MEDS ORDERED: PHENYLEPHRINE IV 250 ML IV ONE (07:53)
[2022-11-05] MEDS: cefTRIAXone 1GM/50ML D5W 50 ML IV SCH (08:34)
[2022-11-05] MEDS: PHENYLEPHRINE IV 250 ML IV SCH ×3 (09:15→21:57)
[2022-11-05] MEDS ORDERED: VANCOMYCIN PER PHARMACY 0 MG IV SCH (09:30)
[2022-11-05] MEDS: ENOXAPARIN SOD 30 MG/0.3 ML SYRINGE SC SCH (09:37)
[2022-11-05] MEDS: SODIUM CHLORIDE 0.9% 1,000 ML IV SCH (10:00)
[2022-11-05] MEDS ORDERED: VANCOMYCIN 1GM/250ML 250 ML IV ONE (10:30)
[2022-11-05] MEDS ORDERED: CATHFLO ACTIVASE (ALTEPLASE) 2 MG VIAL IV ONE (12:45)
[2022-11-05] MEDS: MICAFUNGIN SODIUM 100 MG in SODIUM CHL 0.9% 100 ML IV SCH (12:49)
[2022-11-05] MEDS ORDERED: MEROPENEM 1GM IVPB 100 ML IV SCH (14:00)
[2022-11-05] MEDS ORDERED: MEROPENEM 1GM IVPB 100 ML IV ONE (14:00)
[2022-11-05] MEDS ORDERED: TPN PER PHARMACY IV NR ×7 (20:00)
[2022-11-05] MEDS: ATORVASTATIN 20 MG TAB PO SCH (22:00)
[2022-11-05] MEDS: MEROPENEM 500MG IVPB 50 ML IV SCH (22:01)
[2022-11-06] VITALS (92 sets, daily range): BP systolic 92–147; BP diastolic 34–94
[2022-11-06] MEDS: MORPHINE SULFATE INJ 2 MG/ml SYRG IV PRN ×2 (00:47→22:25)
[2022-11-06] MEDS ORDERED: diphenhdrAMINE HCL 50 MG/1 ML VL IV ONE (02:30)
[2022-11-06] MEDS: SODIUM CHLORIDE 0.9% 1,000 ML IV SCH (02:40)
[2022-11-06] MEDS: InsuLIN REG 1unit/0.01ml Soln (100units/ml) SC SCH ×4 (06:00→18:36)
[2022-11-06] MEDS: ACCU-CHEK COMFORT CURVE STRIP VI SCH ×4 (06:21→18:34)
[2022-11-06 06:41] LABS: Albumin 2.1 g/dL (3.4-5.0); Calcium 8.4 mg/dL (8.5-10.1); Magnesium 2.2 mg/dL (1.6-2.6); Potassium 4.4 mmol/L (3.5-5.1)
[2022-11-06 06:43] LABS: Bilirubin, Total 0.4 mg/dL (0.2-1.0); Phosphorus 5.3 mg/dL (2.5-4.90); Total Protein 4.7 g/dL (6.4-8.2)
[2022-11-06] MEDS: PHENYLEPHRINE IV 250 ML IV SCH ×2 (07:03→17:05)
[2022-11-06] MEDS ORDERED: FUROSEMIDE 40 MG/4 ML VIAL IV ONE (07:30)
[2022-11-06] MEDS ORDERED: SODIUM CHLORIDE 0.9% 1,000 ML IV SCH (07:30)
[2022-11-06 08:13] LABS: Basophils # (auto) 0 10 ^3/uL (0-0.2); Lymphocytes # (auto) 0.4 10 ^3/uL (0.4-5.4); Monocytes # (auto) 0.6 10 ^3/uL (0-1.3); Nucleated Red Blood Cells % 0.3 %; Red Cell Distribution Width 19.3 % (11.8-14.3)
[2022-11-06 08:14] LABS: Basophils % (auto) 0.4 % (0.0-2.0); Eosinophils # (auto) 0.4 10 ^3/uL (0-0.8); Eosinophils % (auto) 5.2 % (0.0-7.0); Hematocrit 19.1 % (36.0-46.0); Lymphocytes % (auto) 4.4 % (10.0-50.0); Mean Corpuscular Hemoglobin 27.4 pg (28.0-32.0); Mean Corpuscular Hgb Conc. 32.7 g/dL (32.0-36.0); Monocytes % (auto) 7.3 % (0.0-12.0); Neutrophils # (auto) 6.8 10 ^3/uL (1.6-8.6); Neutrophils % (auto) 82.7 % (37.0-80.0); Red Blood Cells 2.28 10^6/uL (4.0-5.20); White Blood Cell 8.2 10^3/uL (4.4-10.8)
[2022-11-06 08:27] LABS: Hemoglobin 6.2 g/dL (12.2-16.2)
[2022-11-06] MEDS: MICAFUNGIN SODIUM 100 MG in SODIUM CHL 0.9% 100 ML IV SCH (11:16)
[2022-11-06] MEDS: SOD CHL 0.45% 1,000 ML IV SCH ×2 (11:21→20:00)
[2022-11-06] MEDS: ENOXAPARIN SOD 30 MG/0.3 ML SYRINGE SC SCH (11:22)
[2022-11-06] MEDS: MEROPENEM 500MG IVPB 50 ML IV SCH ×2 (12:33→23:20)
[2022-11-06] MEDS ORDERED: HEPARIN SODIUM (PORCINE) 5000 UNITS/ML 1ML VIAL XX ONE (15:45)
[2022-11-06] MEDS ORDERED: VANCOMYCIN 1GM/250ML 250 ML IV ONE (16:00)
[2022-11-06] MEDS ORDERED: HEPARIN SODIUM (PORCINE) 5000 UNITS/ML 1ML VIAL ONE (16:16)
[2022-11-06] MEDS ORDERED: PPN PER PHARMACY IV NR ×8 (20:00)
[2022-11-06] MEDS ORDERED: TPN PER PHARMACY IV NR ×8 (20:00)
[2022-11-06] MEDS: ATORVASTATIN 20 MG TAB PO SCH (21:07)
[2022-11-06] MEDS: diphenhdrAMINE HCL 50 MG/1 ML VL IV PRN (23:19)
[2022-11-07] VITALS (95 sets, daily range): BP systolic 109–193; BP diastolic 42–84
[2022-11-07] MEDS: PHENYLEPHRINE IV 250 ML IV SCH ×3 (01:25→18:05)
[2022-11-07] MEDS: SOD CHL 0.45% 1,000 ML IV SCH ×2 (03:08→18:35)
[2022-11-07] MEDS: MORPHINE SULFATE INJ 2 MG/ml SYRG IV PRN (05:18)
[2022-11-07] MEDS: diphenhdrAMINE HCL 50 MG/1 ML VL IV PRN ×3 (05:18→20:27)
[2022-11-07] MEDS: ACCU-CHEK COMFORT CURVE STRIP VI SCH ×4 (06:00→17:45)
[2022-11-07] MEDS: InsuLIN REG 1unit/0.01ml Soln (100units/ml) SC SCH ×4 (06:00→17:45)
[2022-11-07 08:21] LABS: BUN/Creatinine Ratio 22.2; Calcium 8.2 mg/dL (8.5-10.1); Phosphorus 4.3 mg/dL (2.5-4.90); Potassium 3.7 mmol/L (3.5-5.1)
[2022-11-07] MEDS: ENOXAPARIN SOD 30 MG/0.3 ML SYRINGE SC SCH (09:44)
[2022-11-07] MEDS: MICAFUNGIN SODIUM 100 MG in SODIUM CHL 0.9% 100 ML IV SCH (09:44)
[2022-11-07] MEDS: MEROPENEM 500MG IVPB 50 ML IV SCH ×2 (11:00→22:00)
[2022-11-07 14:08] LABS: Hematocrit 28.9 % (36.0-46.0); Hemoglobin 9.4 g/dL (12.2-16.2); Mean Corpuscular Hemoglobin 27.5 pg (28.0-32.0); Mean Corpuscular Hgb Conc. 32.7 g/dL (32.0-36.0); Mean Corpuscular Volume 84.2 fL (80.0-100.0); Red Blood Cells 3.43 10^6/uL (4.0-5.20); Red Cell Distribution Width 17.6 % (11.8-14.3)
[2022-11-07 14:18] LABS: Basophils % (manual) 0 (0.0-2.0); Blast Cells 0; Metamyelocytes % 0; Myelocytes % 0; Promyelocytes % 0; Reactive Lymphocytes 0
[2022-11-07 19:21] LABS: Band Neutrophils % (manual) 18; Eosinophils % (manual) 11 (0-7); Lymphocytes % (manual) 7 (10.0-50.0); Monocytes % (manual) 8 (0-12)
[2022-11-07] MEDS ORDERED: PPN PER PHARMACY IV NR ×8 (20:00)
[2022-11-07] MEDS: ATORVASTATIN 20 MG TAB PO SCH (22:00)
[2022-11-08] VITALS (29 sets, daily range): BP systolic 101–131; BP diastolic 53–99
[2022-11-08] MEDS: SOD CHL 0.45% 1,000 ML IV SCH ×2 (02:00→19:52)
[2022-11-08] MEDS: PHENYLEPHRINE IV 250 ML IV SCH ×2 (02:25→10:45)
[2022-11-08 04:48] LABS: Hemoglobin 9.1 g/dL (12.2-16.2); Mean Corpuscular Hemoglobin 26.8 pg (28.0-32.0); Mean Corpuscular Hgb Conc. 32.5 g/dL (32.0-36.0); Mean Corpuscular Volume 82.7 fL (80.0-100.0); Red Blood Cells 3.38 10^6/uL (4.0-5.20); Red Cell Distribution Width 17.8 % (11.8-14.3); White Blood Cell 6.4 10^3/uL (4.4-10.8)
[2022-11-08 04:58] LABS: Basophils % (manual) 0 (0.0-2.0); Blast Cells 0; Metamyelocytes % 0; Myelocytes % 0; Promyelocytes % 0; Reactive Lymphocytes 0
[2022-11-08 05:06] LABS: Albumin 1.9 g/dL (3.4-5.0); Calcium 8.9 mg/dL (8.5-10.1); Magnesium 2.3 mg/dL (1.6-2.6); Potassium 3.3 mmol/L (3.5-5.1)
[2022-11-08 05:08] LABS: BUN/Creatinine Ratio 23.4
[2022-11-08 05:23] LABS: Bilirubin, Total 0.3 mg/dL (0.2-1.0); Phosphorus 4.1 mg/dL (2.5-4.90); Total Protein 5.4 g/dL (6.4-8.2)
[2022-11-08] MEDS: ACCU-CHEK COMFORT CURVE STRIP VI SCH ×4 (06:00→18:00)
[2022-11-08] MEDS: InsuLIN REG 1unit/0.01ml Soln (100units/ml) SC SCH ×4 (06:00→18:00)
[2022-11-08 09:07] LABS: Band Neutrophils % (manual) 39; Eosinophils % (manual) 13 (0-7); Lymphocytes % (manual) 4 (10.0-50.0); Monocytes % (manual) 9 (0-12)
[2022-11-08] MEDS: MEROPENEM 500MG IVPB 50 ML IV SCH ×2 (10:00→22:49)
[2022-11-08] MEDS: ENOXAPARIN SOD 30 MG/0.3 ML SYRINGE SC SCH (10:00)
[2022-11-08] MEDS ORDERED: SODIUM CHL 0.9% 1000 ML BAG XX ONE (11:15)
[2022-11-08] MEDS: POTASSIUM CHL 20MEQ/100ML 100 ML IV SCH ×2 (12:36→12:38)
[2022-11-08] MEDS: MICAFUNGIN SODIUM 100 MG in SODIUM CHL 0.9% 100 ML IV SCH (14:44)
[2022-11-08] MEDS ORDERED: PPN PER PHARMACY IV NR ×8 (20:00)
[2022-11-08] MEDS ORDERED: EPOETIN ALFA-EPBX 10,000 UNIT/1ML VIAL SC ONE (21:00)
[2022-11-08] MEDS: ATORVASTATIN 20 MG TAB PO SCH (22:50)
[2022-11-09] VITALS (17 sets, daily range): BP systolic 105–135; BP diastolic 70–99
[2022-11-09 05:27] LABS: Alanine Aminotransferase 29 U/L (13-56); Albumin 2.1 g/dL (3.4-5.0); Anion Gap 13 (5-15); Aspartate Aminotransferase 61 U/L (15-37); BUN/Creatinine Ratio 25.2; Blood Urea Nitrogen 75 mg/dL (7-18); Calcium 9.6 mg/dL (8.5-10.1); Carbon Dioxide 17 mmol/L (21-32); Chloride 109 mmol/L (98-107); GFR African American 20 mL/min; GFR Non-African American 17 mL/min; Glucose 73 mg/dL (74-106); Magnesium 1.9 mg/dL (1.6-2.6); Sodium 139 mmol/L (136-145)
[2022-11-09 05:30] LABS: Alkaline Phosphatase 221 U/L (45-117); Bilirubin, Total 0.4 mg/dL (0.2-1.0); Phosphorus 4.5 mg/dL (2.5-4.90); Total Protein 5.9 g/dL (6.4-8.2)
[2022-11-09] MEDS: ACCU-CHEK COMFORT CURVE STRIP VI SCH ×4 (05:31→18:12)
[2022-11-09] MEDS: InsuLIN REG 1unit/0.01ml Soln (100units/ml) SC SCH ×4 (05:37→18:00)
[2022-11-09 05:39] LABS: Hematocrit 32.1 % (36.0-46.0); Mean Corpuscular Hemoglobin 28.4 pg (28.0-32.0); Mean Corpuscular Hgb Conc. 34.2 g/dL (32.0-36.0); Mean Corpuscular Volume 83.2 fL (80.0-100.0); Red Blood Cells 3.86 10^6/uL (4.0-5.20); Red Cell Distribution Width 17.5 % (11.8-14.3); White Blood Cell 6.6 10^3/uL (4.4-10.8)
[2022-11-09 05:42] LABS: Band Neutrophils % (manual) 0; Basophils % (manual) 0 (0.0-2.0); Blast Cells 0; Metamyelocytes % 0; Myelocytes % 0; Promyelocytes % 0; Reactive Lymphocytes 0
[2022-11-09] MEDS: PHENYLEPHRINE IV 250 ML IV SCH ×2 (07:51→11:45)
[2022-11-09 08:41] LABS: Eosinophils % (manual) 11 (0-7); Lymphocytes % (manual) 8 (10.0-50.0); Monocytes % (manual) 5 (0-12)
[2022-11-09] MEDS ORDERED: SOD CHL 0.45% 1,000 ML IV SCH (09:30)
[2022-11-09] MEDS: ENOXAPARIN SOD 30 MG/0.3 ML SYRINGE SC SCH (09:59)
[2022-11-09] MEDS: MEROPENEM 500MG IVPB 50 ML IV SCH ×2 (10:00→21:01)
[2022-11-09] MEDS: MICAFUNGIN SODIUM 100 MG in SODIUM CHL 0.9% 100 ML IV SCH (11:58)
[2022-11-09] MEDS ORDERED: VANCOMYCIN 500 MG in D5W 5% 100 ML IV ONE (12:30)
[2022-11-09] MEDS ORDERED: PPN PER PHARMACY IV NR ×9 (20:00)
[2022-11-09] MEDS: ATORVASTATIN 20 MG TAB PO SCH (22:00)
[2022-11-10] MEDS: ACCU-CHEK COMFORT CURVE STRIP VI SCH ×4 (00:08→18:00)
[2022-11-10 05:27] LABS: Hemoglobin 10.4 g/dL (12.2-16.2); Mean Corpuscular Hemoglobin 27.2 pg (28.0-32.0); Mean Corpuscular Hgb Conc. 32.3 g/dL (32.0-36.0); Mean Corpuscular Volume 84.1 fL (80.0-100.0); Red Blood Cells 3.81 10^6/uL (4.0-5.20); Red Cell Distribution Width 18.2 % (11.8-14.3); White Blood Cell 5.3 10^3/uL (4.4-10.8)
[2022-11-10 05:30] LABS: Band Neutrophils % (manual) 0; Basophils % (manual) 0 (0.0-2.0); Blast Cells 0; Metamyelocytes % 0; Myelocytes % 0; Promyelocytes % 0; Reactive Lymphocytes 0
[2022-11-10 05:39] VITALS: BP 115/83
[2022-11-10 05:40] LABS: Alanine Aminotransferase 35 U/L (13-56); Anion Gap 11 (5-15); Aspartate Aminotransferase 72 U/L (15-37); Blood Urea Nitrogen 78 mg/dL (7-18); Calcium 9.9 mg/dL (8.5-10.1); Carbon Dioxide 17 mmol/L (21-32); Chloride 109 mmol/L (98-107); GFR African American 24 mL/min; GFR Non-African American 20 mL/min; Glucose 96 mg/dL (74-106); Magnesium 2.1 mg/dL (1.6-2.6); Potassium 3.1 mmol/L (3.5-5.1); Sodium 137 mmol/L (136-145)
[2022-11-10 05:43] LABS: Alkaline Phosphatase 214 U/L (45-117); Bilirubin, Total 0.3 mg/dL (0.2-1.0); Phosphorus 4.3 mg/dL (2.5-4.90); Total Protein 5.7 g/dL (6.4-8.2)
[2022-11-10] MEDS: InsuLIN REG 1unit/0.01ml Soln (100units/ml) SC SCH ×4 (06:00→18:00)
[2022-11-10 08:18] LABS: Eosinophils % (manual) 17 (0-7); Lymphocytes % (manual) 11 (10.0-50.0); Monocytes % (manual) 4 (0-12)
[2022-11-10 08:57] VITALS: BP 111/73
[2022-11-10] MEDS: MEROPENEM 500MG IVPB 50 ML IV SCH ×3 (09:04→21:39)
[2022-11-10] MEDS: ENOXAPARIN SOD 30 MG/0.3 ML SYRINGE SC SCH (09:04)
[2022-11-10] MEDS ORDERED: POTASSIUM CHL 20MEQ/100ML 100 ML IV ONE (09:45)
[2022-11-10] MEDS: LACTATED RINGER'S 1,000 ML IV SCH ×2 (10:46→21:04)
[2022-11-10] MEDS: MICAFUNGIN SODIUM 100 MG in SODIUM CHL 0.9% 100 ML IV SCH (11:35)
[2022-11-10 12:58] VITALS: BP 118/74
[2022-11-10 17:00] VITALS: BP 91/66
[2022-11-10 17:05] VITALS: BP 115/70
[2022-11-10] MEDS ORDERED: ceFAZolin 1GM/50ML 50 ML IV ONE (17:30)
[2022-11-10] MEDS ORDERED: PPN PER PHARMACY IV NR ×9 (20:00)
[2022-11-10] MEDS: ATORVASTATIN 20 MG TAB PO SCH (21:40)
[2022-11-10 22:00] VITALS: BP 125/84
[2022-11-11] MEDS: ACCU-CHEK COMFORT CURVE STRIP VI SCH ×4 (00:24→18:00)
[2022-11-11 05:00] VITALS: BP 120/82
[2022-11-11] MEDS: InsuLIN REG 1unit/0.01ml Soln (100units/ml) SC SCH ×4 (06:00→18:00)
[2022-11-11 06:10] LABS: Albumin 2.4 g/dL (3.4-5.0); Magnesium 2.6 mg/dL (1.6-2.6); Potassium 3.5 mmol/L (3.5-5.1)
[2022-11-11 06:14] LABS: BUN/Creatinine Ratio 32.6; Bilirubin, Total 0.4 mg/dL (0.2-1.0); Phosphorus 4.8 mg/dL (2.5-4.90); Total Protein 5.4 g/dL (6.4-8.2)
[2022-11-11 07:20] LABS: Hematocrit 30.9 % (36.0-46.0); Mean Corpuscular Hemoglobin 27.4 pg (28.0-32.0); Mean Corpuscular Hgb Conc. 32.3 g/dL (32.0-36.0); Mean Corpuscular Volume 84.8 fL (80.0-100.0); Red Blood Cells 3.65 10^6/uL (4.0-5.20); Red Cell Distribution Width 18.8 % (11.8-14.3)
[2022-11-11 07:27] LABS: Basophils % (manual) 0 (0.0-2.0); Blast Cells 0; Metamyelocytes % 0; Myelocytes % 0; Promyelocytes % 0; Reactive Lymphocytes 0
[2022-11-11 09:00] VITALS: BP 119/78
[2022-11-11] MEDS: MEROPENEM 500MG IVPB 50 ML IV SCH (09:40)
[2022-11-11 09:41] LABS: Band Neutrophils % (manual) 1; Eosinophils % (manual) 10 (0-7); Lymphocytes % (manual) 5 (10.0-50.0); Monocytes % (manual) 2 (0-12)
[2022-11-11] MEDS: MICAFUNGIN SODIUM 100 MG in SODIUM CHL 0.9% 100 ML IV SCH (11:24)
[2022-11-11 13:00] VITALS: BP 129/85
[2022-11-11 17:00] VITALS: BP 135/75
[2022-11-11] MEDS ORDERED: VANCOMYCIN 500 MG in D5W 5% 100 ML IV ONE (17:00)
[2022-11-11] MEDS ORDERED: PPN PER PHARMACY IV NR ×9 (20:00)
[2022-11-11 22:00] VITALS: BP 114/83
[2022-11-11] MEDS: ATORVASTATIN 20 MG TAB PO SCH (22:00)
[2022-11-11] MEDS: MEROPENEM 1GM IVPB 100 ML IV SCH (22:05)
[2022-11-12] MEDS: ACCU-CHEK COMFORT CURVE STRIP VI SCH ×4 (00:19→18:03)
[2022-11-12] MEDS: LACTATED RINGER'S 1,000 ML IV SCH ×2 (01:45→18:02)
[2022-11-12 05:00] VITALS: BP 136/88
[2022-11-12] MEDS: InsuLIN REG 1unit/0.01ml Soln (100units/ml) SC SCH ×4 (06:00→18:00)
[2022-11-12 09:00] VITALS: BP 125/72
[2022-11-12] MEDS: diphenhdrAMINE HCL 50 MG/1 ML VL IV PRN (09:44)
[2022-11-12] MEDS: MEROPENEM 1GM IVPB 100 ML IV SCH ×2 (09:44→21:38)
[2022-11-12] MEDS ORDERED: ENOXAPARIN SOD 30 MG/0.3 ML SYRINGE SC SCH (10:00)
[2022-11-12] MEDS: MICAFUNGIN SODIUM 100 MG in SODIUM CHL 0.9% 100 ML IV SCH (10:46)
[2022-11-12 11:00] LABS: Hematocrit 32.3 % (36.0-46.0); Hemoglobin 10.7 g/dL (12.2-16.2); Mean Corpuscular Hemoglobin 28.8 pg (28.0-32.0); Mean Corpuscular Hgb Conc. 33.1 g/dL (32.0-36.0); Mean Corpuscular Volume 86.9 fL (80.0-100.0); Red Blood Cells 3.72 10^6/uL (4.0-5.20); Red Cell Distribution Width 19.3 % (11.8-14.3); White Blood Cell 5.5 10^3/uL (4.4-10.8)
[2022-11-12 11:03] LABS: Basophils % (manual) 0 (0.0-2.0); Blast Cells 0; Metamyelocytes % 0; Myelocytes % 0; Promyelocytes % 0; Reactive Lymphocytes 0
[2022-11-12 11:22] LABS: INR 1.01 (0.9-1.15); Partial Thromboplastin Time 35.1 sec (24.6-33.4)
[2022-11-12 11:23] LABS: Albumin 2.3 g/dL (3.4-5.0); Calcium 11.2 mg/dL (8.5-10.1); Magnesium 2.4 mg/dL (1.6-2.6); Potassium 3.1 mmol/L (3.5-5.1)
[2022-11-12 11:26] LABS: BUN/Creatinine Ratio 43.4; Bilirubin, Total 0.3 mg/dL (0.2-1.0); Phosphorus 4.5 mg/dL (2.5-4.90); Total Protein 6.1 g/dL (6.4-8.2)
[2022-11-12] MEDS: MORPHINE SULFATE INJ 2 MG/ml SYRG IV PRN (11:40)
[2022-11-12 13:19] LABS: Band Neutrophils % (manual) 11; Eosinophils % (manual) 18 (0-7); Lymphocytes % (manual) 11 (10.0-50.0); Monocytes % (manual) 6 (0-12)
[2022-11-12] MEDS: POTASSIUM CHL 20MEQ/100ML 100 ML IV SCH ×2 (13:19→18:01)
[2022-11-12] MEDS ORDERED: PROPOFOL 10 MG/ML 20 ML IV ONE (16:17)
[2022-11-12] MEDS ORDERED: fentaNYL CITRATE 100 MCG/2 ML VL ONE (16:17)
[2022-11-12] MEDS ORDERED: GLYCOPYRROLATE 0.2 MG/ML 1ML VIAL ONE (16:17)
[2022-11-12] MEDS ORDERED: MIDAZOLAM HCL 2MG/2ML 2ml VIAL (1mg/ml) ONE (16:26)
[2022-11-12] MEDS ORDERED: ceFAZolin 1GM VL ONE (16:37)
[2022-11-12 17:55] VITALS: BP 98/73
[2022-11-12] MEDS ORDERED: TPN PER PHARMACY IV NR ×9 (20:00)
[2022-11-12] MEDS: ATORVASTATIN 20 MG TAB PO SCH (21:36)
[2022-11-12 22:00] VITALS: BP 105/77
[2022-11-13] MEDS: LACTATED RINGER'S 1,000 ML IV SCH ×2 (01:45→06:45)
[2022-11-13 05:00] VITALS: BP 105/72
[2022-11-13] MEDS: InsuLIN REG 1unit/0.01ml Soln (100units/ml) SC SCH ×4 (06:00→18:00)
[2022-11-13] MEDS: ACCU-CHEK COMFORT CURVE STRIP VI SCH ×4 (06:00→18:36)
[2022-11-13] MEDS: ENSURE CLEAR Apple 8oz Carton PO SCH ×3 (06:00→18:28)
[2022-11-13 06:18] LABS: Hemoglobin 10.5 g/dL (12.2-16.2); Mean Corpuscular Hemoglobin 28.7 pg (28.0-32.0); Mean Corpuscular Hgb Conc. 32.9 g/dL (32.0-36.0); Mean Corpuscular Volume 87.2 fL (80.0-100.0); Red Blood Cells 3.67 10^6/uL (4.0-5.20); Red Cell Distribution Width 19.3 % (11.8-14.3); White Blood Cell 4.4 10^3/uL (4.4-10.8)
[2022-11-13 07:06] LABS: Basophils % (manual) 0 (0.0-2.0); Blast Cells 0; Metamyelocytes % 0; Myelocytes % 0; Promyelocytes % 0; Reactive Lymphocytes 0
[2022-11-13 07:34] LABS: Albumin 2.3 g/dL (3.4-5.0); BUN/Creatinine Ratio 40.7; Calcium 11.3 mg/dL (8.5-10.1); Magnesium 1.9 mg/dL (1.6-2.6); Potassium 3.1 mmol/L (3.5-5.1)
[2022-11-13 07:37] LABS: Bilirubin, Total 0.3 mg/dL (0.2-1.0); Phosphorus 3.9 mg/dL (2.5-4.90); Total Protein 6.2 g/dL (6.4-8.2)
[2022-11-13 09:00] VITALS: BP 117/88
[2022-11-13] MEDS: POTASSIUM CHL 20MEQ/100ML 100 ML IV SCH ×2 (09:46→10:00)
[2022-11-13] MEDS: MICAFUNGIN SODIUM 100 MG in SODIUM CHL 0.9% 100 ML IV SCH (10:00)
[2022-11-13] MEDS: MEROPENEM 1GM IVPB 100 ML IV SCH ×2 (10:00→21:36)
[2022-11-13] MEDS ORDERED: VANCOMYCIN 500 MG in D5W 5% 100 ML IV ONE (12:00)
[2022-11-13 13:01] LABS: Band Neutrophils % (manual) 11; Eosinophils % (manual) 24 (0-7); Lymphocytes % (manual) 8 (10.0-50.0); Monocytes % (manual) 10 (0-12)
[2022-11-13 13:18] VITALS: BP 107/48
[2022-11-13] MEDS ORDERED: TPN PER PHARMACY IV NR ×9 (20:00)
[2022-11-13] MEDS: ATORVASTATIN 20 MG TAB PO SCH (21:35)
[2022-11-13 22:00] VITALS: BP 107/75
[2022-11-14] MEDS: ACCU-CHEK COMFORT CURVE STRIP VI SCH ×5 (00:40→23:43)
[2022-11-14] MEDS: InsuLIN REG 1unit/0.01ml Soln (100units/ml) SC SCH ×5 (00:40→23:44)
[2022-11-14] MEDS: ENSURE CLEAR Apple 8oz Carton PO SCH ×5 (00:44→23:43)
[2022-11-14] MEDS: LACTATED RINGER'S 1,000 ML IV SCH ×2 (02:45→22:45)
[2022-11-14 05:00] VITALS: BP 113/60
[2022-11-14 06:46] LABS: Hematocrit 30.6 % (36.0-46.0); Hemoglobin 10.4 g/dL (12.2-16.2); Mean Corpuscular Hemoglobin 28.6 pg (28.0-32.0); Mean Corpuscular Volume 84.1 fL (80.0-100.0); Red Blood Cells 3.63 10^6/uL (4.0-5.20); Red Cell Distribution Width 18.9 % (11.8-14.3); White Blood Cell 4.7 10^3/uL (4.4-10.8)
[2022-11-14 06:58] LABS: Basophils % (manual) 0 (0.0-2.0); Blast Cells 0; Metamyelocytes % 0; Myelocytes % 0; Promyelocytes % 0; Reactive Lymphocytes 0
[2022-11-14 07:12] LABS: Albumin 2.4 g/dL (3.4-5.0); Magnesium 1.8 mg/dL (1.6-2.6); Potassium 3.1 mmol/L (3.5-5.1)
[2022-11-14 07:14] LABS: BUN/Creatinine Ratio 51.9
[2022-11-14 07:21] LABS: Bilirubin, Total 0.3 mg/dL (0.2-1.0); Phosphorus 3.4 mg/dL (2.5-4.90); Total Protein 5.3 g/dL (6.4-8.2)
[2022-11-14 08:00] VITALS: BP 104/71
[2022-11-14 08:25] LABS: Band Neutrophils % (manual) 13; Lymphocytes % (manual) 6 (10.0-50.0); Monocytes % (manual) 7 (0-12)
[2022-11-14 08:26] LABS: Eosinophils % (manual) 27 (0-7)
[2022-11-14] MEDS ORDERED: POTASSIUM CHL 20MEQ/100ML 100 ML IV SCH (10:15)
[2022-11-14] MEDS: MICAFUNGIN SODIUM 100 MG in SODIUM CHL 0.9% 100 ML IV SCH (10:24)
[2022-11-14 12:00] VITALS: BP 109/67
[2022-11-14] MEDS: POTASSIUM CHL 20MEQ/100ML 100 ML IV SCH ×3 (12:15→14:18)
[2022-11-14] MEDS: MEROPENEM 1GM IVPB 100 ML IV SCH ×2 (12:22→21:37)
[2022-11-14 16:00] VITALS: BP 102/68
[2022-11-14] MEDS ORDERED: TPN PER PHARMACY IV NR ×10 (20:00)
[2022-11-14 22:00] VITALS: BP 105/71
[2022-11-14] MEDS: ATORVASTATIN 20 MG TAB PO SCH (23:43)
[2022-11-15] MEDS: MEROPENEM 1GM IVPB 100 ML IV SCH ×3 (03:42→21:28)
[2022-11-15 05:00] VITALS: BP 88/64
[2022-11-15 05:30] VITALS: BP 134/62
[2022-11-15] MEDS: InsuLIN REG 1unit/0.01ml Soln (100units/ml) SC SCH (06:00)
[2022-11-15] MEDS: ENSURE CLEAR Apple 8oz Carton PO SCH ×3 (06:23→19:10)
[2022-11-15] MEDS: ACCU-CHEK COMFORT CURVE STRIP VI SCH (06:24)
[2022-11-15 07:40] LABS: Potassium 3.5 mmol/L (3.5-5.1)
[2022-11-15 07:44] LABS: Albumin 2.3 g/dL (3.4-5.0); BUN/Creatinine Ratio 48.5; Calcium 11.5 mg/dL (8.5-10.1)
[2022-11-15 08:02] LABS: Bilirubin, Total 0.3 mg/dL (0.2-1.0); Phosphorus 4.4 mg/dL (2.5-4.90); Total Protein 5.9 g/dL (6.4-8.2)
[2022-11-15 08:25] VITALS: BP 90/52
[2022-11-15] MEDS ORDERED: SODIUM CHLORIDE 0.9% 1,000 ML IV SCH (09:15)
[2022-11-15] MEDS: MICAFUNGIN SODIUM 100 MG in SODIUM CHL 0.9% 100 ML IV SCH (11:00)
[2022-11-15] MEDS ORDERED: VANCOMYCIN 500 MG in D5W 5% 100 ML IV ONE ×2 (11:00→15:00)
[2022-11-15] MEDS: MIDODRINE HCL 10 MG TAB PO SCH ×2 (11:10→19:03)
[2022-11-15] MEDS: FREE WATER GT SCH ×3 (12:00→23:16)
[2022-11-15 13:49] VITALS: BP 99/60
[2022-11-15 16:25] VITALS: BP 96/54
[2022-11-15 22:00] VITALS: BP 122/45
[2022-11-15] MEDS: ATORVASTATIN 20 MG TAB PO SCH (23:16)
[2022-11-16] VITALS (7 sets, daily range): BP systolic 91–135; BP diastolic 43–76
[2022-11-16] MEDS: MEROPENEM 1GM IVPB 100 ML IV SCH ×3 (03:36→23:27)
[2022-11-16] MEDS: FREE WATER GT SCH ×3 (06:37→18:38)
[2022-11-16] MEDS: MIDODRINE HCL 10 MG TAB PO SCH ×3 (06:37→18:00)
[2022-11-16] MEDS: ENSURE CLEAR Apple 8oz Carton PO SCH ×5 (06:37→23:28)
[2022-11-16 06:59] LABS: BUN/Creatinine Ratio 43.2; Calcium 11.7 mg/dL (8.5-10.1); Phosphorus 5.7 mg/dL (2.5-4.90); Potassium 3.3 mmol/L (3.5-5.1)
[2022-11-16] MEDS: MICAFUNGIN SODIUM 100 MG in SODIUM CHL 0.9% 100 ML IV SCH (09:56)
[2022-11-16] MEDS: SODIUM CHLORIDE 0.9% 1,000 ML IV SCH ×3 (10:26→23:28)
[2022-11-16 10:28] LABS: Hematocrit 30.1 % (36.0-46.0); Hemoglobin 9.6 g/dL (12.2-16.2); Mean Corpuscular Hemoglobin 27.5 pg (28.0-32.0); Mean Corpuscular Hgb Conc. 31.8 g/dL (32.0-36.0); Mean Corpuscular Volume 86.2 fL (80.0-100.0); Red Blood Cells 3.49 10^6/uL (4.0-5.20); Red Cell Distribution Width 18.8 % (11.8-14.3); White Blood Cell 6.4 10^3/uL (4.4-10.8)
[2022-11-16 10:40] LABS: Basophils % (manual) 0 (0.0-2.0); Blast Cells 0; Metamyelocytes % 0; Myelocytes % 0; Promyelocytes % 0
[2022-11-16] MEDS ORDERED: VANCOMYCIN 1GM/250ML 250 ML IV SCH (11:00)
[2022-11-16 13:32] LABS: Band Neutrophils % (manual) 1; Eosinophils % (manual) 30 (0-7); Lymphocytes % (manual) 10 (10.0-50.0); Monocytes % (manual) 9 (0-12); Reactive Lymphocytes 4
[2022-11-16] MEDS: VANCOMYCIN 1GM/250ML 250 ML IV SCH (14:48)
[2022-11-16] MEDS: MORPHINE SULFATE INJ 2 MG/ml SYRG IV PRN (14:53)
[2022-11-16] MEDS: ATORVASTATIN 20 MG TAB PO SCH (23:27)
[2022-11-17] MEDS: MEROPENEM 1GM IVPB 100 ML IV SCH ×3 (04:19→20:38)
[2022-11-17 05:00] VITALS: BP 128/86
[2022-11-17] MEDS: MIDODRINE HCL 10 MG TAB PO SCH ×3 (06:00→18:41)
[2022-11-17] MEDS: ENSURE CLEAR Apple 8oz Carton PO SCH ×3 (06:08→18:41)
[2022-11-17] MEDS: FREE WATER GT SCH ×5 (06:08→23:39)
[2022-11-17] MEDS: SODIUM CHLORIDE 0.9% 1,000 ML IV SCH ×3 (06:15→19:35)
[2022-11-17 06:19] LABS: BUN/Creatinine Ratio 33.9
[2022-11-17 06:50] LABS: Potassium 2.8 mmol/L (3.5-5.1)
[2022-11-17 08:30] VITALS: BP 110/64
[2022-11-17] MEDS: POTASSIUM CHL 20MEQ/100ML 100 ML IV SCH ×2 (09:35→11:11)
[2022-11-17] MEDS: MICAFUNGIN SODIUM 100 MG in SODIUM CHL 0.9% 100 ML IV SCH (10:48)
[2022-11-17 13:13] VITALS: BP 118/69
[2022-11-17] MEDS: VANCOMYCIN 1GM/250ML 250 ML IV SCH (15:19)
[2022-11-17 16:49] LABS: Magnesium 1.3 mg/dL (1.6-2.6); Potassium 3.3 mmol/L (3.5-5.1)
[2022-11-17 17:01] VITALS: BP 122/69
[2022-11-17 22:00] VITALS: BP 111/77
[2022-11-17] MEDS ORDERED: MIDODRINE HCL 10 MG TAB PEG SCH (22:15)
[2022-11-17] MEDS ORDERED: ENSURE CLEAR Apple 8oz Carton PEG SCH (22:15)
[2022-11-17 22:35] LABS: Magnesium 1.2 mg/dL (1.6-2.6)
[2022-11-17] MEDS: ATORVASTATIN 20 MG TAB PEG SCH (22:47)
[2022-11-17 22:49] LABS: Potassium 2.9 mmol/L (3.5-5.1)
[2022-11-17] MEDS: ENSURE CLEAR Apple 8oz Carton PEG SCH (23:39)
[2022-11-18] MEDS: POTASSIUM CHL 20MEQ/100ML 100 ML IV SCH ×2 (00:08→02:10)
[2022-11-18] MEDS: MAGNESIUM SULFATE 1GM/100ML 100 ML IV SCH ×4 (00:15→09:51)
[2022-11-18] MEDS: SODIUM CHLORIDE 0.9% 1,000 ML IV SCH ×4 (02:15→18:53)
[2022-11-18] MEDS: MEROPENEM 1GM IVPB 100 ML IV SCH (03:50)
[2022-11-18 05:00] VITALS: BP 100/61
[2022-11-18] MEDS: MIDODRINE HCL 10 MG TAB PEG SCH ×3 (05:30→17:56)
[2022-11-18] MEDS: FREE WATER GT SCH ×3 (05:33→17:56)
[2022-11-18] MEDS: ENSURE CLEAR Apple 8oz Carton PEG SCH ×3 (05:34→17:57)
[2022-11-18 07:25] LABS: BUN/Creatinine Ratio 31.5; Calcium 10.4 mg/dL (8.5-10.1)
[2022-11-18 07:56] LABS: Potassium 2.9 mmol/L (3.5-5.1)
[2022-11-18] MEDS ORDERED: POTASSIUM EFFERVESENT TAB 25 MEQ GT ONE (08:15)
[2022-11-18 09:00] VITALS: BP 91/65
[2022-11-18 13:00] VITALS: BP 121/96
[2022-11-18 17:00] VITALS: BP 131/78
[2022-11-18] MEDS: HYDROcodone-ACET 5/325MG TAB PO PRN (17:56)
[2022-11-18 22:00] VITALS: BP 140/87
[2022-11-18] MEDS: ATORVASTATIN 20 MG TAB PEG SCH (22:50)
[2022-11-19] MEDS: FREE WATER GT SCH ×4 (00:39→19:19)
[2022-11-19] MEDS: ENSURE CLEAR Apple 8oz Carton PEG SCH ×4 (00:39→19:19)
[2022-11-19] MEDS: HYDROcodone-ACET 5/325MG TAB PO PRN ×4 (00:39→13:51)
[2022-11-19] MEDS: MIDODRINE HCL 10 MG TAB PEG SCH ×3 (06:00→18:00)
[2022-11-19] MEDS: SODIUM CHLORIDE 0.9% 1,000 ML IV SCH (06:46)
[2022-11-19 07:12] LABS: Anion Gap 9 (5-15); Blood Urea Nitrogen 32 mg/dL (7-18); Calcium 10.2 mg/dL (8.5-10.1); Carbon Dioxide 15 mmol/L (21-32); Chloride 114 mmol/L (98-107); Glucose 68 mg/dL (74-106); Sodium 138 mmol/L (136-145)
[2022-11-19 07:14] LABS: BUN/Creatinine Ratio 26.7; GFR African American 59 mL/min; GFR Non-African American 48 mL/min
[2022-11-19 07:23] LABS: Potassium 2.9 mmol/L (3.5-5.1)
[2022-11-19 09:07] VITALS: BP 99/69
[2022-11-19] MEDS ORDERED: POTASSIUM EFFERVESENT TAB 25 MEQ PO ONE (09:45)
[2022-11-19] MEDS ORDERED: FERROUS SULFATE 300 MG/5 ML ORAL LIQ GT SCH (10:00)
[2022-11-19] MEDS: POTASSIUM CHL 20MEQ/100ML 100 ML IV SCH ×2 (11:38→13:51)
[2022-11-19 12:31] VITALS: BP 129/70
[2022-11-19 13:00] VITALS: BP 129/70
[2022-11-19 17:00] VITALS: BP 133/79
[2022-11-19] MEDS ORDERED: HEPARIN SODIUM (PORCINE) 5000 UNITS/ML 1ML VIAL SC SCH (22:00)
== END 2022-11-19 20:43 | DRG 469 ==
LOC: EDBD 21:26 → ER 21:31 → TELE 10-20 02:36 → TELE-EAST 10-20 17:45 → DOU IN ICU 11-05 07:58 → ICU CENTRL 11-05 18:24 → TELE-EAST 11-09 15:17 → EAST 11-11 00:07 → TELE-EAST 11-15 12:55
PROVIDERS: ADMIT Nurse Practitioner; ATTEND Nurse Practitioner Acute Care
PROC: 30233N1 Transfusion of Nonautologous Red Blood Cells into Peripheral Vein, Percutaneous Approach (ICD-10-PCS; 2022-10-20)
PROC: 05H933Z Insertion of Infusion Device into Right Brachial Vein, Percutaneous Approach (ICD-10-PCS; 2022-10-22)
PROC: B54MZZA Ultrasonography of Right Upper Extremity Veins, Guidance (ICD-10-PCS; 2022-10-22)
PROC: 02HV33Z Insertion of Infusion Device into Superior Vena Cava, Percutaneous Approach (ICD-10-PCS; 2022-10-27)
PROC: B548ZZA Ultrasonography of Superior Vena Cava, Guidance (ICD-10-PCS; 2022-10-27)
PROC: 5A1D70Z Performance of Urinary Filtration, Intermittent, Less than 6 Hours Per Day (ICD-10-PCS; 2022-10-28)
PROC: 5A1D70Z Performance of Urinary Filtration, Intermittent, Less than 6 Hours Per Day (ICD-10-PCS; 2022-10-30)
PROC: 05HF33Z Insertion of Infusion Device into Left Cephalic Vein, Percutaneous Approach (ICD-10-PCS; 2022-11-08)
PROC: B54NZZA Ultrasonography of Left Upper Extremity Veins, Guidance (ICD-10-PCS; 2022-11-08)
PROC: 0DP68UZ Removal of Feeding Device from Stomach, Via Natural or Artificial Opening Endoscopic (ICD-10-PCS; 2022-11-12)
PROC: 0DH63UZ Insertion of Feeding Device into Stomach, Percutaneous Approach (ICD-10-PCS; principal; 2022-11-12 16:17)
DX: N17.0 Acute kidney failure with tubular necrosis (principal); I21.4 Non-ST elevation (NSTEMI) myocardial infarction; A41.9 Sepsis, unspecified organism; G93.41 Metabolic encephalopathy; E43 Unspecified severe protein-calorie malnutrition; K22.11 Ulcer of esophagus with bleeding; E87.20 Acidosis, unspecified; I95.3 Hypotension of hemodialysis; C50.912 Malignant neoplasm of unspecified site of left female breast; C34.90 Malignant neoplasm of unspecified part of unspecified bronchus or lung; N30.90 Cystitis, unspecified without hematuria; E86.0 Dehydration; R13.12 Dysphagia, oropharyngeal phase; M54.50 Low back pain, unspecified; R79.89 Other specified abnormal findings of blood chemistry; E87.6 Hypokalemia; K44.9 Diaphragmatic hernia without obstruction or gangrene; N18.4 Chronic kidney disease, stage 4 (severe); D50.9 Iron deficiency anemia, unspecified; J98.11 Atelectasis; N14.11 Contrast-induced nephropathy; E83.39 Other disorders of phosphorus metabolism; I12.9 Hypertensive chronic kidney disease with stage 1 through stage 4 chronic kidney disease, or unspecified chronic kidney disease; Z20.822 Contact with and (suspected) exposure to COVID-19; D72.819 Decreased white blood cell count, unspecified; I25.10 Atherosclerotic heart disease of native coronary artery without angina pectoris; E83.52 Hypercalcemia; Z95.5 Presence of coronary angioplasty implant and graft; Z86.73 Personal history of transient ischemic attack (TIA), and cerebral infarction without residual deficits; Z85.3 Personal history of malignant neoplasm of breast; Z79.02 Long term (current) use of antithrombotics/antiplatelets; Z82.49 Family history of ischemic heart disease and other diseases of the circulatory system; Z90.710 Acquired absence of both cervix and uterus; Z92.21 Personal history of antineoplastic chemotherapy; Z68.26 Body mass index [BMI] 26.0-26.9, adult
CPT/HCPCS: 36415; 36600; 70450; 70551; 71045; 71275; 72148; 73560; 74176; 76705; 76775; 80048; 80053; 80074; 80076; 80202; 81001; 81003; 82270; 82306; 82570; 82805; 82962; 83540; 83550; 83605; 83615; 83735; 83880; 83970; 84100; 84132; 84156; 84300; 84478; 84484; 84702; 85007; 85014; 85018; 85025; 85027; 85610; 85730; 86141; 86850; 86880; 86900; 86901; 86920; 87040; 87045; 87077; 87081; 87086; 87186; 87426; 87427; 87493; 87804; 90935; 92507; 92610; 93005; 93306; 93970; 95819; 96365; 96375; 97110; 97116; 97163; 97530; G0378; J0690; J0696; J1642; J1815; J2001; J2185; J2248; J2250; J2405; J2543; J2704; J3480; J3490; J7042; J7060; P9047